=== PATIENT | female | born 1935 | race Caucasian/White ===

== ENCOUNTER 2017-01-17 15:11 | Emergency (ER) | payer OTHER, BC ==
[2017-01-17 15:46] VITALS: BP 169/73; PULSE 65; TEMP 97.8; BMI 26.2
[2017-01-17 17:48] LABS: URINE APPEARANCE CLEAR; URINE BILIRUBIN NEGATIVE (NEGATIVE); URINE BLOOD NEGATIVE (NEGATIVE); URINE COLOR LTYELLOW; URINE GLUCOSE (UA) NEGATIVE (NEGATIVE); URINE KETONE NEGATIVE (NEGATIVE); URINE NITRITE NEGATIVE (NEGATIVE); URINE PROTEIN NEGATIVE (NEGATIVE); URINE UROBILINOGEN NEGATIVE mg/dL (0.2-1.0)
--- NOTE | 2017-01-17 17:52 | PDOC ---
History of Present Illness - General Chief Complaint: Injury Stated Complaint: FALL Time Seen by Provider: 01/17/17 15:57 History Source: Patient Exam Limitations: No Limitations - History of Present Illness Initial Comments: 01/17/17 17:46 CHIEF COMPLAINT: Mechanical fall, left rib pain HISTORY OF PRESENT ILLNESS: Patient is an 81-year-old female, history of retention and high cholesterol currently takes aspirin daily. Patient reports being in shop right and the carpet was mildly raised and the cart got caught on the carpet and she fell forward with able to stop her fall before falling to the floor however hit the left posterior back on some boxes. Now with left posterior lateral back pain. Patient with no bruising, no erythema or edema, denies hitting her head, denies any arm pain, no hip pain. PMH: High blood pressure, high cholesterol, MEDS: See medication list ALLERGIES: None REVIEW OF SYSTEMS: GENERAL/CONSTITUTIONAL: Awake alert and oriented HEAD, EYES, EARS, NOSE AND THROAT: No change in vision. No facial edema, no bruising. NO active bleeding. Nares intact. RESPIRATORY: No cough, wheezing, or hemoptysis. CARDIAC: Denies chest pain, no shortness of breathe. MUSCULOSKELETAL: No spinal point tenderness, there is pain to left lateral mid back . Good ROM to all four extremeties. NO CVA tenderness. No lateral neck pain. GI/: Denies abdominal pain, no nausea or vomiting, no bloody stool, no Hematuria. SKIN : No erythema or bruising noted. No abrasion or lacerations. NEUROLOGIC: No loss of consciousness, no numbness or tingling. PHYSICAL EXAM: GENERAL: Awake and alert and oriented x3. EYES: The pupils are equal, round, and reactive to light, with clear, conjunctiva. Good extraocular movement. No nystagmus NOSE: No nasal trauma . Midface stable MOUTH: Teeth intact. EARS: The ear canals and tympanic membranes are normal without trauma. No drainage. NECK: No Lower cervical C-spine tenderness, no pain with chin to chest. CHEST: The lungs are clear without crackles, or wheezes. No subcutaneous emphysema. No crepitus. HEART: Heart is regular rhythm, with normal S1 and S2, no murmurs. ABDOMEN: The abdomen is soft and nontender with normal bowel sounds. There is no guarding or rebound. MUSCULOSKELETAL: No spinal point tenderness. No bruising or erythema. Pelvis stable. RECTAL: Patient refused. EXTREMITIES: Extremities are normal. No visible traumatic injury. MUSCULOSKELETAL: Pain on palpation to posterior lower rib NEUROLOGICAL:Mental status: The patient is oriented x3. No Generalized headache , Romberg - Cranial nerves: Cranial nerves II through XII are intact Motor: The upper extremities are 5 over 5 in all muscle groups. The lower extremities are 5 over 5 in all muscle groups. Sensation: Sensation is intact to light touch throughout. Cerebellar: Ribbkr-ihwwqs-[id number] is normal in both upper extremities. Heel-knee- nguyễn is normal in both lower extremities. Reflexes: 2+ and symmetric in the upper and lower extremities. Gait: Normal. Heel and toe walking are normal. Tandem gait is normal. SKIN: Without edema, erythema or bruising. No abrasions or lacerations. Past History - Past Medical History Allergies/Adverse Reactions: Allergies Allergy/AdvReac Type Severity Reaction Status Date / Time No Known Allergies Allergy Verified 01/17/17 15:46 Home Medications: Ambulatory Orders Alprazolam 0.5 mg PO ASDIR 01/17/17 Aspirin [Ecotrin] 81 mg PO DAILY 01/17/17 Atorvastatin Ca [Lipitor] 20 mg PO HS 01/17/17 Calcium Citrate 200 mg PO DAILY 01/17/17 Cholecalciferol (Vitamin D3) [Vitamin D3] 2,000 unit PO ASDIR 01/17/17 Citalopram Hydrobromide [Citalopram HBr] 20 mg PO DAILY 01/17/17 Ibandronate Sodium [Boniva] 3 mg IV MONTHLY 01/17/17 Metoprolol Succinate [Toprol Xl] 50 mg PO DAILY 01/17/17 [place]-3 Fatty Acids/Fish Oil [Fish Oil 1,000 mg Softgel] 1 each PO ASDIR Ranitidine [Zantac -] 150 mg PO DAILY 01/17/17 Sennosides [Senna] 8.6 mg PO DAILY 01/17/17 Valsartan 40 mg PO DAILY 01/17/17 Vitamin B Complex [Complex B-100] 1 each PO DAILY 01/17/17 Acetaminophen [Tylenol -] 650 mg PO Q6H PRN #60 tablet 01/18/17 Cardiac Disorders: Yes GI Disorders: Yes HTN: Yes Hypercholesterolemia: Yes - Suicide/Smoking/Psychosocial Hx Smoking Status: No Smoking History: Never smoked Number of Cigarettes Smoked Daily: 0 Hx Alcohol Use: No Drug/Substance Use Hx: No *Physical Exam - Vital Signs Last Vital Signs Temp Pulse Resp BP Pulse Ox 97.8 F 65 20 169/73 97 01/17/17 15:40 01/17/17 15:40 01/17/17 15:40 01/17/17 15:40 01/17/17 15:40 ED Treatment Course - LABORATORY CBC & Chemistry Diagram: 01/17/17 19:50 01/17/17 19:50 - RADIOLOGY Radiology Studies Ordered: Category Date Time Status RIBS-LEFT SIDE [RAD] Stat Radiology 01/17/17 16:42 Ordered Medical Decision Making - Medical Decision Making 01/17/17 18:02 A/P: Patient here for evaluation of left posterior lateral back pain status post fall there is no bruising. Patient with reproducible pain and pain only on palpation, no pain at rest. Denies any chest pain or shortness of breath. Urinalysis sent to rule out blood and patient sent to x-ray. X-ray demonstrates the ninth posterior rib fracture. 1 g of Tylenol ordered. 01/17/17 18:03 Laboratory Results - last 24 hr 01/17/17 16:50 Urine Color Ltyellow Urine Appearance Clear Urine pH 5.0 Urine Protein Negative Urine Glucose (UA) Negative Urine Ketones Negative Urine Blood Negative Urine Nitrite Negative Urine Bilirubin Negative Urine Urobilinogen Negative No blood in urine. Patient with posterior rib fracture #9 , there is a density on x-ray which may be discoid atelectasis versus a pulmonary contusion. Case discussed with Dr. Laguna and Dr. Greene. To be transferred to main emergency department for higher level of care. Plan: CT chest abdomen and pelvis with IV contrast, type and screen, CBC, CMP, PT/ INR, PTT, ABG. Transferred via wheelchair. 01/19/17 11:41 *DC/Admit/Observation/Transfer Diagnosis at time of Disposition: CO2 retention, Intractable pain Pulmonary contusion Qualifiers: Encounter type: initial encounter Laterality: unspecified laterality Qualified Code(s): S27.329A - Contusion of lung, unspecified, initial encounter Multiple rib fractures Qualifiers: Encounter type: initial encounter Fracture type: closed Laterality: unspecified laterality Qualified Code(s): S22.49XA - Multiple fractures of ribs , unspecified side, initial encounter for closed fracture - Discharge Dispostion Disposition: HOME Condition at time of disposition: Stable - Prescriptions Prescriptions: Acetaminophen [Tylenol -] 650 mg PO Q6H PRN #60 tablet PRN Reason: Pain - Referrals Referrals: Han Butts MD [Primary Care Provider] - 01/18/17 8:00 am - Patient Instructions Printed Discharge Instructions: DI for Rib Fracture Additional Instructions: You have 2 ribs which are fractured. it is important to take tylenol and or ibuprofen around the clock for pain control. If you do not then it will be hard to breath and you can develop complications from not taking deep breaths. Continue your home medications follow up with Dr. Bishop in the morning. Call for an appointment right away and see Dr. Bishop as soon as possible. If you can not see your doctor or the pain gets worse or you develop fevers chills chest pain shortness of breath or bleeding go to the nearest emergency room right away. follow up with Dr. Bishop to go over your CT scan as there were some findings that may need to be followed regularly such as the adrenal mass and dilated bile duct seen on CT scan. you may need a fence post driver It was a pleasure meeting you Good [place] Dr. Eusebio Kebede
[2017-01-17] MEDS ORDERED: ACETAMINOPHEN 500 MG TABLET (FP) PO ONE (17:59)
[2017-01-17] MEDS ORDERED: ACETAMINOPHEN 500 MG TABLET (FP) ONE (18:03)
--- NOTE | 2017-01-17 19:14 | PDOC ---
Attending Attestation - Medical Decision Making EXAM#: TYPE/EXAM: RESULT: [id number] CT/ABDOMEN PELVIS CT WITH CONTR [id number] CT/CHEST CT WITH CONTRAST Chest CT (with contrast) Abdomen and pelvis CT (with contrast) Clinical information: status post fall, evaluate for probably contusion Multiplanar imaging of the chest, abdomen and pelvis was performed following the intravenous administration of nonionic contrast. Oral contrast was not administered. No prior CT studies are available at this facility for direct comparison. Mildly displaced acute fractures are seen involving the left eighth rib posteriorly and the left tenth rib laterally. No pneumothorax, infiltrate, pulmonary contusion or pleural fluid is seen. There is mild left basilar and minimal right basilar discoid atelectasis. Mild left atrial dilatation is seen. There is no pericardial effusion. No definite intrathoracic or axillary lymphadenopathy is noted. There is no aortic aneurysm. No CT evidence of aortic injury. There is no obvious endobronchial pathology. No evidence of pneumoperitoneum, free intraperitoneal fluid or bowel obstruction. Cholelithiasis is identified. Note is also made of several gallbladder wall calcifications adjacent to the fundus. The common bile duct is dilated to the level of the ampulla with a maximum diameter of 1.2 cm. No gross intraductal calculus is seen. There is no gross mass lesion. Mild intrahepatic biliary tract dilatation is also noted. There is no definite dilatation of the main pancreatic duct. The liver, spleen, pancreas, right adrenal gland and left kidney demonstrate no discrete pathology. A 1.5 cm left adrenal nodule is noted. There is mild cortical scarring along the lower pole of the right kidney. No abdominal aortic aneurysm is noted. There is no definite abdominal/pelvic lymphadenopathy. A mild L2 superior endplate compression fracture is seen without bony retropulsion. This fracture appears chronic. Marked L4-L5 degenerative disc changes are noted with associated mild degenerative spondylolisthesis at the same level. No CT evidence of acute appendicitis or diverticulitis. IMPRESSION: Acute left eighth and tenth rib fractures are noted. There is mild left basilar and minimal right basilar discoid atelectasis. Mild cardiomegaly. Cholelithiasis. Several gallbladder wall calcifications are seen adjacent to the fundus. Correlate with nonemergent sonography. The common bile duct is dilated to the level interval with a maximum diameter of 1.2 cm. Clinical/ laboratory correlation is suggested as well as with nonemergent MRI/MRCP. A 1.5 cm left adrenal nodule is seen very likely representing an adenoma on a statistical basis. More precise characterization is somewhat difficult on this contrast-enhanced exam. This finding may be further evaluated on MRI. Mild right renal cortical scarring. Mild L2 vertebral body compression fracture which appears chronic. Reported By: Saurav Blas MD 01/17/[address] Butts was called at 23:26 and he requests [facility] admit. <Rima Espinal - Last Filed: 01/17/17 23:25> - Resident Resident Name: True Greene - ED Attending Attestation I have performed the following: I have examined & evaluated the patient, The case was reviewed & discussed with the resident, I agree w/resident's findings & plan, Exceptions are as noted - HPI HPI: 01/17/17 19:08 [facility] Pulmonary Contusion seen on CXR by Radiology and the Provider in [facility] - Physicial Exam PE: 01/17/17 19:12 NOT HYPOXIC or TACHY, VSS, NAD - Medical Decision Making 01/17/17 19:[address] Greene' Assessment and Plan <Abraham Laguna - Last Filed: 01/18/17 01:13> Discharge Disposition <Rima Espinal - Last Filed: 01/17/17 23:25> - Discharge Dispostion Last Admission D/C Date: 06/21/01 Admit: Yes <Abraham Laguna - Last Filed: 01/18/17 01:13> - Diagnosis CO2 retention, Intractable pain Pulmonary contusion Qualifiers: Encounter type: initial encounter Laterality: unspecified laterality Qualified Code(s): S27.329A - Contusion of lung, unspecified, initial encounter Multiple rib fractures Qualifiers: Encounter type: initial encounter Fracture type: closed Laterality: unspecified laterality Qualified Code(s): S22.49XA - Multiple fractures of ribs , unspecified side, initial encounter for closed fracture - Discharge Dispostion Condition at time of disposition: Unchanged/Unknown - Referrals Medical Decision Making - Medical Decision Making 01/17/17 23:28 Case Discussed with PMD, Dr. CARIAS, Observation Admission to [facility] for Multiple Rib Fractures, Pulmonary Contusion and Intractable Pain. Mild retention noted on ABG. Will [facility] [facility] for med -surg observation admission 01/17/17 23:48 Case Discussedc with Resident Physician Eusebio Lemus about the admission who had Dr. Peña call me. Neither resident or attending physician came to evaluate the patient, they are refusing admission without having seen or laying hands on the patient. I have no choice but to involve Dr. Recinos for resolution of this problem. Both the PMD Dr. Carias and Myself recommend observation admission. Will await Dr. Recinos's guidance. 01/18/17 01:12 Ultimately directed to let the obs admission stand by Dr. Peña <Abraham Laguna - Last Filed: 01/18/17 01:13>
[2017-01-17 19:46] LABS: URINE LEUK ESTERASE TRACE (NEGATIVE)
[2017-01-17 20:20] LABS: ARTERIAL BLD GAS O2 SATURATION 95.6 % (90-98.9); ARTERIAL BLOOD GAS BASE EXCESS 3.6 meq/l (-2-2); ARTERIAL BLOOD GAS HCO3 28.3 meq/L (22-26); ARTERIAL BLOOD GAS PO2 76.9 mmHg (68-100); ARTERIAL BLOOD GAS pH 7.41 (7.35-7.45)
[2017-01-17 20:22] LABS: ALLENS TEST POSITIVE; ART PUNCT SITE RIGHT BRACHIAL; LPM/O2% 21%; PT. ON O2? NO; TYPE OF O2 ROOM AIR
[2017-01-17 20:24] LABS: METHEMOGLOBIN 0.6 % (0.4-1.5)
[2017-01-17 20:28] LABS: INR 1.04 (0.82-1.09); PROTHROMBIN TIME (PATIENT) 11.8 SEC (9.98-11.88)
[2017-01-17 20:30] LABS: ACTIVATED PTT 30.7 SECONDS (26.9-34.4)
[2017-01-17 20:33] LABS: BASOPHIL 0.4 % (0-2.0); EOSINOPHIL 1.7 % (0-4.5); MCH 28.6 pg (25.7-33.7); MCHC 33.1 g/dl (32.0-36.0); MEAN CELL VOLUME 86.4 fl (80-96); MEAN PLT VOLUME 8.6 fl (7.5-11.1); NEUTROPHILS 68.3 % (42.8-82.8); PLATELET COUNT 242 K/MM3 (134-434); RDW 13.7 % (11.6-15.6); WHITE BLOOD COUNT 12.8 K/mm3 (4.0-10.0)
[2017-01-17 20:53] LABS: ALBUMIN 3.9 g/dl (3.4-5.0); ANION GAP 7 (8-16); BILIRUBIN,TOTAL 0.6 mg/dL (0.2-1.0); CALCIUM 10.2 mg/dL (8.5-10.1); CO2 28 mmol/L (21-32); GLUCOSE,RANDOM 96 mg/dL (74-106); SGOT/AST 19 U/L (15-37); SGPT/ALT 22 U/L (12-78); TOT PROT 7.6 g/dl (6.4-8.2)
[2017-01-17 20:54] LABS: ALK PHOS 62 U/L (45-117)
[2017-01-17 20:57] LABS: URINE BACTERIA NONE SEEN /hpf (NEGATIVE); URINE RBC 0-2 /hpf (0-3)
--- NOTE | 2017-01-17 21:19 | PDOC ---
History of Present Illness - General Chief Complaint: Injury Stated Complaint: FALL Time Seen by Provider: 01/17/17 15:57 - History of Present Illness Initial Comments: 01/17/17 21:14 The patient is an 81 year old female with a history of HLD, retention on aspirin who presents for evaluation following a fall. The patient reports that she was pushing a shopping cart and tripped on a rug and hit her left sided chest on some boxes with immediate pain. She presented to the ED for evaluation. She denies any head trauma or other injuries besides left sided chest pain. She was initially seen in fast track and was up triaged to the main ED due to finding a 9th displaced rib fracture on the left with signs of a pulmonary contusion on plain film. She currently denies any SOB, abdominal pain , lightheadedness, nausea, vomiting, or changes with urination or bowel movements. Past History - Past Medical History Allergies/Adverse Reactions: Allergies Allergy/AdvReac Type Severity Reaction Status Date / Time No Known Allergies Allergy Verified 01/17/17 15:46 Home Medications: Ambulatory Orders Alprazolam 0.5 mg PO ASDIR 01/17/17 Aspirin [Ecotrin] 81 mg PO DAILY 01/17/17 Atorvastatin Ca [Lipitor] 20 mg PO HS 01/17/17 Calcium Citrate 200 mg PO DAILY 01/17/17 Cholecalciferol (Vitamin D3) [Vitamin D3] 2,000 unit PO ASDIR 01/17/17 Citalopram Hydrobromide [Citalopram HBr] 20 mg PO DAILY 01/17/17 Ibandronate Sodium [Boniva] 3 mg IV MONTHLY 01/17/17 Metoprolol Succinate [Toprol Xl] 50 mg PO DAILY 01/17/17 [place]-3 Fatty Acids/Fish Oil [Fish Oil 1,000 mg Softgel] 1 each PO ASDIR Ranitidine [Zantac -] 150 mg PO DAILY 01/17/17 Sennosides [Senna] 8.6 mg PO DAILY 01/17/17 Valsartan 40 mg PO DAILY 01/17/17 Vitamin B Complex [Complex B-100] 1 each PO DAILY 01/17/17 Acetaminophen [Tylenol -] 650 mg PO Q6H PRN #60 tablet 01/18/17 Cardiac Disorders: Yes GI Disorders: Yes HTN: Yes Hypercholesterolemia: Yes - Suicide/Smoking/Psychosocial Hx Smoking Status: No Smoking History: Never smoked Number of Cigarettes Smoked Daily: 0 Hx Alcohol Use: No Drug/Substance Use Hx: No Review of Systems - Review of Systems Comments:: 01/17/17 21:18 Constitutional: No fevers, chills, fatigue, malaise HEENT: No Rhinorrhea, nasal congestion, visual changes Cardiovascular: Chest pain. No syncope, palpitations, lightheadedness Respiratory: No Cough, SOB, Hemoptysis, Gastrointestinal: No Abdominal pain, Nausea, Vomiting, Constipation, Diarrhea, Melena Genitourinary: No Dysuria, Frequency, Urgency, Hesitancy, Hematuria, Flank pain Musculoskeletal: No Myalgia, arthralgia Skin: No rashes, bruising, pallor Neurologic: No Headache, Dizziness, Numbness, Weakness, or Tingling *Physical Exam - Vital Signs Last Vital Signs Temp Pulse Resp BP Pulse Ox 97.8 F 65 20 169/73 97 01/17/17 15:40 01/17/17 15:40 01/17/17 15:40 01/17/17 15:40 01/17/17 15:40 - Physical Exam Comments: 01/17/17 21:18 General Appearance: Nourished. No Apparent Distress HEENT: EOMI, ANTONIO. No obvious signs of head trauma. No Pharyngeal Erythema, Tonsillar Exudate, Tonsillar Erythema Neck: No Cervical Lymphadenopathy Respiratory/Chest: Tenderness of the left sided chest around the 9th rib. Lungs Clear, Normal Breath Sounds. No Crackles, Rales, Rhonchi, Wheezing Cardiovascular: Regular Rhythm, Regular Rate. No Murmur, Gallops, Rubs Gastrointestinal/Abdominal: Normal Bowel Sounds, Soft. No Guarding, Rebound, Tenderness Musculoskeletal: No CVA Tenderness Extremity: Normal Capillary Refill Integumentary: Normal Color, Dry, Warm Neurologic: gas maker helper II-XII NML intact, Fully Oriented, Alert, Normal Mood/Affect, Normal Response, Motor Strength 5/5. Normal Finger to Nose and Heel to [place] ED Treatment Course - LABORATORY CBC & Chemistry Diagram: 01/17/17 19:50 01/17/17 19:50 - ADDITIONAL ORDERS Additional order review: Laboratory Results 01/17/17 01/17/17 01/17/17 20:15 20:15 19:50 PT with INR INR PTT (Actin FS) Puncture Site Right brachial ABG pH 7.41 ABG pCO2 at Pt Temp 46.0 H ABG pO2 at Pt Temp 76.9 ABG HCO3 28.3 H ABG O2 Sat (Measured) 95.6 ABG O2 Content 15.5 ABG Base Excess 3.6 H Carlos A Test Positive Carboxyhemoglobin 1.5 Methemoglobin 0.6 O2 Delivery Device Room air Oxygen Flow Rate 21% PEEP 0.0 Sodium 139 Potassium 4.3 Chloride 104 Carbon Dioxide 28 Anion Gap 7 L BUN 26 H Creatinine 1.0 Creat Clearance w eGFR 53.35 Random Glucose 96 Calcium 10.2 H Total Bilirubin 0.6 AST 19 ALT 22 Alkaline Phosphatase 62 Total Protein 7.6 Albumin 3.9 Urine Color Urine Appearance Urine pH Ur Specific [place] Urine Protein Urine Glucose (UA) Urine Ketones Urine Blood Urine Nitrite Urine Bilirubin Urine Urobilinogen Ur Leukocyte Esterase Urine RBC Urine WBC Ur Epithelial Cells Urine Bacteria 01/17/17 01/17/17 19:50 16:50 PT with INR 11.80 INR 1.04 PTT (Actin FS) 30.7 Puncture Site ABG pH ABG pCO2 at Pt Temp ABG pO2 at Pt Temp ABG HCO3 ABG O2 Sat (Measured) ABG O2 Content ABG Base Excess Carlos A Test Carboxyhemoglobin Methemoglobin O2 Delivery Device Oxygen Flow Rate PEEP Sodium Potassium Chloride Carbon Dioxide Anion Gap BUN Creatinine Creat Clearance w eGFR Random Glucose Calcium Total Bilirubin AST ALT Alkaline Phosphatase Total Protein Albumin Urine Color Ltyellow Urine Appearance Clear Urine pH 5.0 Ur Specific [place] 1.010 Urine Protein Negative Urine Glucose (UA) Negative Urine Ketones Negative Urine Blood Negative Urine Nitrite Negative Urine Bilirubin Negative Urine Urobilinogen Negative Ur Leukocyte Esterase Trace H Urine RBC 0-2 Urine WBC 1-3 Ur Epithelial Cells None seen Urine Bacteria None seen 01/17/17 19:50 RBC 4.27 MCV 86.4 MCHC 33.1 RDW 13.7 MPV 8.6 Neutrophils % 68.3 Lymphocytes % 22.7 Monocytes % 6.9 Eosinophils % 1.7 Basophils % 0.4 - Medications Given in the ED: ED Medications Discontinued Medications Generic Name Dose Route Start Last Admin Trade Name Freq PRN Reason Stop Dose Admin Acetaminophen 1,000 mg 01/17/17 17:59 01/17/17 18:07 Tylenol - PO 01/17/17 18:00 1,000 mg ONCE ONE Administration Medical Decision Making - Medical Decision Making 01/17/17 21:19 The patient is an 81 year old female with a history of HLD, retention on aspirin who presents for evaluation following a fall. Differential includes but is not limited to: Pneumothorax, pulmonary contusion, fracture, metabolic derangement. Given the patient's signs of pulmonary contusion on chest plain film with hx of trauma, we will obtain a ct chest abdomen and pelvis to evaluate the extent of her injuries further. We will send a cbc, cmp, inr, abg to evaluate her oxygenation status and other etiologies. We will repeat her plain film in several hours after ct to evaluate for any progression of symptoms. The patient is currently stable and in no acute distress on exam. We will continue to monitor and reassess. *DC/Admit/Observation/Transfer Diagnosis at time of Disposition: CO2 retention, Intractable pain Pulmonary contusion Qualifiers: Encounter type: initial encounter Laterality: unspecified laterality Qualified Code(s): S27.329A - Contusion of lung, unspecified, initial encounter Multiple rib fractures Qualifiers: Encounter type: initial encounter Fracture type: closed Laterality: unspecified laterality Qualified Code(s): S22.49XA - Multiple fractures of ribs , unspecified side, initial encounter for closed fracture - Discharge Dispostion Disposition: HOME Condition at time of disposition: Stable - Prescriptions Prescriptions: Acetaminophen [Tylenol -] 650 mg PO Q6H PRN #60 tablet PRN Reason: Pain - Referrals Referrals: Han Butts MD [Primary Care Provider] - 01/18/17 8:00 am - Patient Instructions Printed Discharge Instructions: DI for Rib Fracture Additional Instructions: You have 2 ribs which are fractured. it is important to take tylenol and or ibuprofen around the clock for pain control. If you do not then it will be hard to breath and you can develop complications from not taking deep breaths. Continue your home medications follow up with Dr. Bishop in the morning. Call for an appointment right away and see Dr. Bishop as soon as possible. If you can not see your doctor or the pain gets worse or you develop fevers chills chest pain shortness of breath or bleeding go to the nearest emergency room right away. follow up with Dr. Bishop to go over your CT scan as there were some findings that may need to be followed regularly such as the adrenal mass and dilated bile duct seen on CT scan. you may need a administration dean It was a pleasure meeting you Good [place] Dr. Eusebio Kebede
[2017-01-17] MEDS ORDERED: ACETAMINOPHEN 1000 MG/100 ML VIAL (NON FORMULARY) IVPB ONE (23:44)
[2017-01-17] MEDS ORDERED: ACETAMINOPHEN INJECTION 100 ML IVPB ONE (23:53)
[2017-01-18] MEDS ORDERED: ONDANSETRON 4 MG/2 ML VIAL IVPUSH ONE
[2017-01-18] MEDS ORDERED: morphine CARPU-JECT 2 MG/1 ML DISP.SYRIN IVPUSH ONE
--- NOTE | 2017-01-18 01:39 | HP ---
CHIEF COMPLAINT:s/p fall PCP:Edna HISTORY OF PRESENT ILLNESS: 81F presents to the ED s/p fall. Per patient and she was shopping at [employer] and the rug was curled up and not laying down flat and the patient tripped over the rug. History taken from and . She was pushing the shopping cart while it happened. The patient states she fell on her left side and is complaining of left sided flank pain. She denies hitting her head or LOC. She denies having any visual changes headache lightheadedness or dizziness. She denies nausea vomiting fevers chills chest pain or shortness of breath. ER course was notable for: (1)Tylenol (2)XRays (3)CT scan Recent Travel:Denies PAST MEDICAL HISTORY: HTN, HLD, Anxiety/depression, osteoperosis GERD Social History: Smoking:Denies Alcohol:Denies Drugs: Denies Allergies No Known Allergies Allergy (Verified 01/17/17 15:46) HOME MEDICATIONS: Home Medications Medication Instructions Recorded Alprazolam 0.5 mg PO ASDIR 01/17/17 Aspirin [Ecotrin] 81 mg PO DAILY 01/17/17 Atorvastatin Ca [Lipitor] 20 mg PO HS 01/17/17 Calcium Citrate 200 mg PO DAILY 01/17/17 Cholecalciferol (Vitamin D3) 2,000 unit PO ASDIR 01/17/17 [Vitamin D3] Citalopram Hydrobromide 20 mg PO DAILY 01/17/17 [Citalopram HBr] Ibandronate Sodium [Boniva] 3 mg IV MONTHLY 01/17/17 Metoprolol Succinate [Toprol Xl] 50 mg PO DAILY 01/17/17 [place]-3 Fatty Acids/Fish Oil [Fish 1 each PO ASDIR 01/17/17 Oil 1,000 mg Softgel] Ranitidine [Zantac -] 150 mg PO DAILY 01/17/17 Sennosides [Senna] 8.6 mg PO DAILY 01/17/17 Valsartan 40 mg PO DAILY 01/17/17 Vitamin B Complex [Complex B-100] 1 each PO DAILY 01/17/17 REVIEW OF SYSTEMS CONSTITUTIONAL: Absent: fever, chills, diaphoresis, generalized weakness, malaise, loss of appetite, weight change HEENT: Absent: rhinorrhea, nasal congestion, throat pain, throat swelling, difficulty swallowing, mouth swelling, ear pain, eye pain, visual changes CARDIOVASCULAR: Absent: chest pain, syncope, palpitations, irregular heart rate, lightheadedness , peripheral edema RESPIRATORY: Absent: cough, shortness of breath, dyspnea with exertion, orthopnea, wheezing, stridor, hemoptysis GASTROINTESTINAL: Absent: abdominal pain, abdominal distension, nausea, vomiting, diarrhea, constipation, melena, hematochezia GENITOURINARY: Absent: dysuria, frequency, urgency, hesitancy, hematuria, flank pain, genital pain MUSCULOSKELETAL: Absent: myalgia, arthralgia, joint swelling, back pain, neck pain Present: Left side pain SKIN: Absent: rash, itching, pallor HEMATOLOGIC/IMMUNOLOGIC: Absent: easy bleeding, easy bruising, lymphadenopathy, frequent infections ENDOCRINE: Absent: unexplained weight gain, unexplained weight loss, heat intolerance, cold intolerance NEUROLOGIC: Absent: headache, focal weakness or paresthesias, dizziness, unsteady gait, seizure, mental status changes, bladder or bowel incontinence PSYCHIATRIC: Absent: anxiety, depression, suicidal or homicidal ideation, hallucinations. PHYSICAL EXAMINATION GENERAL: Awake, alert, and fully oriented, in no acute distress. HEAD: Normal with no signs of trauma. EYES: Pupils equal, round and reactive to light, extraocular movements intact, sclera anicteric EARS, NOSE, THROAT: Moist mucous membranes. NECK: Normal range of motion, supple without JVD LUNGS: Breath sounds equal, clear to auscultation bilaterally. No wheezes, and no crackles. Able to take deep breath with minimal pain. tender to palpation over left flank HEART: Regular rate and rhythm, normal S1 and S2 ABDOMEN: Soft, nontender, not distended, normoactive bowel sounds, no guarding, no rebound MUSCULOSKELETAL: Normal range of motion at all joints. No bony deformities. No spinal step offs. No spinal tenderness. No neurologicval deficits. Able to ambulate UPPER EXTREMITIES: no gross deformities or tenderness LOWER EXTREMITIES: no gross deformities or tenderness NEUROLOGICAL: Cranial nerves II-XII intact PSYCHIATRIC: Cooperative. Good eye contact. Appropriate mood and affect. SKIN: Warm, dry, normal turgor, normal capillary refill. CT chest: Chest CT (with contrast) CT chest abdomen and pelvis IMPRESSION: Acute left eighth and tenth rib fractures are noted. There is mild left basilar and minimal right basilar discoid atelectasis. Mild cardiomegaly. Cholelithiasis. Several gallbladder wall calcifications are seen adjacent to the fundus. Correlate with nonemergent sonography. The common bile duct is dilated to the level interval with a maximum diameter of 1.2 cm. Clinical/ laboratory correlation is suggested as well as with nonemergent MRI/MRCP. A 1.5 cm left adrenal nodule is seen very likely representing an adenoma on a statistical basis. More precise characterization is somewhat difficult on this contrast-enhanced exam. This finding may be further evaluated on MRI. Mild right renal cortical scarring. Mild L2 vertebral body compression fracture which appears chronic. ASSESSMENT/PLAN: 81F with HTN HLD presents to the ED s/p mechanical fall found to have 2 rib fractures on the left side. Rib fracture: Pain control incentive spiromtery pain well controlled with tylenol. Never received IV Narcotics. Went to go admit patient. Patient and her were not under the impression they were going to be admitted rather discharged against medical advice. stated he was waiting for ED physician to come back with the paper to sign in order to have "permission to go home". I explained to him that this paper was to leave against medical advice and the patient and expressed understanding. They were spoken to with a cell biology scientist in order to make sure they fully understood everything even though the spoke and understood Indonesian well. It was explained to the that the ED physician's medical judgment is to admit them to the hospital for observation for the patient's own safety. Patient and still refused and stated that nothing was done except taking Tylenol which they could take at home. It was explained to them that we are able to offer stronger medications should she need it and physical therapy as well. We also explained to the patient and her that observing her over a longer period of time could be of benefit to her. They still wanted to go home. They were advised to follow up with Dr. Bishop first thing this morning and they agreed. Risks benefits and alternatives were discussed with the patient and her . Patient seen by attending and determined she was stable for discharge as she was able to ambulate take deep breaths was not in pain and adamantly requesting to go home. NIKKI Sepulveda and Lluvia present during the interaction. Visit type - Emergency Visit Emergency Visit: Yes ED Registration Date: 01/18/17 Care time: The patient presented to the Emergency Department on the above date and was hospitalized for further evaluation of their emergent condition. - New Patient This patient is new to me today: Yes Date on this admission: 01/18/17 - Critical Care Critical Care patient: No
--- NOTE | 2017-01-18 02:23 | DS ---
Physical Exam: SUBJECTIVE: Patient seen and examined OBJECTIVE: PHYSICAL EXAM GENERAL: Awake, alert, and fully oriented, in no acute distress. HEAD: Normal with no signs of trauma. EYES: Pupils equal, round and reactive to light, extraocular movements intact, sclera anicteric EARS, NOSE, THROAT: Moist mucous membranes. NECK: Normal range of motion, supple without JVD LUNGS: Breath sounds equal, clear to auscultation bilaterally. No wheezes, and no crackles. Able to take deep breath with minimal pain. tender to palpation over left flank HEART: Regular rate and rhythm, normal S1 and S2 ABDOMEN: Soft, nontender, not distended, normoactive bowel sounds, no guarding, no rebound MUSCULOSKELETAL: Normal range of motion at all joints. No bony deformities. No spinal step offs. No spinal tenderness. No neurologicval deficits. Able to ambulate UPPER EXTREMITIES: no gross deformities or tenderness LOWER EXTREMITIES: no gross deformities or tenderness NEUROLOGICAL: Cranial nerves II-XII intact PSYCHIATRIC: Cooperative. Good eye contact. Appropriate mood and affect. SKIN: Warm, dry, normal turgor, normal capillary refill. LABS HOSPITAL COURSE: Date of Admission:01/18/17 Date of Discharge: 01/18/17 81F with HTN HLD presents to the ED s/p mechanical fall found to have 2 rib fractures on the left side. Patient was pushing a shopping cart [facility] when she tripped over a rug that was folded on top of itself. patient was to be placed on observation however thae patient did not want to be admitted to the hospital. She wanted to go home. Went to go admit patient. Patient and her were not under the impression they were going to be admitted rather discharged against medical advice. stated they never agreed to admission and he was waiting for ED physician to come back with the paper to sign in order to have "permission to go home". I explained to him that this paper was to leave against medical advice and the patient and expressed understanding. They were spoken to with a acetone recovery worker in order to make sure they fully understood everything even though the spoke and understood Vietnamese well. It was explained to them that the ED physician's medical judgment is to admit them to the hospital for observation for the patient's own safety. Patient and still refused and stated that nothing was done except taking Tylenol which they could take at home. It was explained to them that we are able to offer stronger medications should she need it and physical therapy as well. We also explained to the patient and her that observing her over a longer period of time could be of benefit to her. They still wanted to go home. They were advised to follow up with Dr. Bishop first thing this morning and they agreed. Risks benefits and alternatives were discussed with the patient and her . Patient seen by attending and determined she was stable for discharge as she was able to ambulate take deep breaths was not in pain and adamantly requesting to go home. NIKKI Sepulveda and Lluvia present during the interaction. Instructed to follow up with PMD and GI given Ct scan results, rib fracture, adrenal mass, and dilated bile duct. Minutes to complete discharge: 35 <Eusebio Kebede - Last Filed: 01/18/17 03:36> Physical Exam: SUBJECTIVE: Patient seen and examined with a resident OBJECTIVE: Vital Signs Period Temp Pulse Resp BP Sys/Guy Pulse Ox Last 24 Hr 97.8 F 65 20 169/73 97 PHYSICAL EXAM GENERAL: The patient is awake, alert, and fully oriented, in no acute distress. HEAD: Normal with no signs of trauma. EYES: PERRL, extraocular movements intact, sclera anicteric, conjunctiva clear. ENT: Ears normal, nares patent, oropharynx clear without exudates, moist mucous membranes. NECK: Trachea midline, full range of motion, supple. LUNGS: Breath sounds equal, clear to auscultation bilaterally, no wheezes, no crackles, no accessory muscle use. Left sided chest wall tenderness. LABS Laboratory Results - last 24 hr 01/17/17 01/17/17 01/17/17 16:50 19:50 19:50 WBC 12.8 H RBC 4.27 Hgb 12.2 Hct 37.0 MCV 86.4 MCH 28.6 MCHC 33.1 RDW 13.7 Plt Count 242 MPV 8.6 Neutrophils % 68.3 Lymphocytes % 22.7 Monocytes % 6.9 Eosinophils % 1.7 Basophils % 0.4 PT with INR 11.80 INR 1.04 PTT (Actin FS) 30.7 Puncture Site ABG pH ABG pCO2 at Pt Temp ABG pO2 at Pt Temp ABG HCO3 ABG O2 Sat (Measured) ABG O2 Content ABG Base Excess Carlos A Test Carboxyhemoglobin Methemoglobin O2 Delivery Device Oxygen Flow Rate PEEP Sodium Potassium Chloride Carbon Dioxide Anion Gap BUN Creatinine Creat Clearance w eGFR Random Glucose Calcium Total Bilirubin AST ALT Alkaline Phosphatase Total Protein Albumin Urine Color Ltyellow Urine Appearance Clear Urine pH 5.0 Ur Specific [place] 1.010 Urine Protein Negative Urine Glucose (UA) Negative Urine Ketones Negative Urine Blood Negative Urine Nitrite Negative Urine Bilirubin Negative Urine Urobilinogen Negative Ur Leukocyte Esterase Trace H Urine RBC 0-2 Urine WBC 1-3 Ur Epithelial Cells None seen Urine Bacteria None seen Blood Type Antibody Screen 01/17/17 01/17/17 01/17/17 19:50 19:50 20:15 WBC RBC Hgb Hct MCV MCH MCHC RDW Plt Count MPV Neutrophils % Lymphocytes % Monocytes % Eosinophils % Basophils % PT with INR INR PTT (Actin FS) Puncture Site Right brachial ABG pH 7.41 ABG pCO2 at Pt Temp 46.0 H ABG pO2 at Pt Temp 76.9 ABG HCO3 28.3 H ABG O2 Sat (Measured) 95.6 ABG O2 Content 15.5 ABG Base Excess 3.6 H Carlos A Test Positive Carboxyhemoglobin Methemoglobin O2 Delivery Device Room air Oxygen Flow Rate 21% PEEP 0.0 Sodium 139 Potassium 4.3 Chloride 104 Carbon Dioxide 28 Anion Gap 7 L BUN 26 H Creatinine 1.0 Creat Clearance w eGFR 53.35 Random Glucose 96 Calcium 10.2 H Total Bilirubin 0.6 AST 19 ALT 22 Alkaline Phosphatase 62 Total Protein 7.6 Albumin 3.9 Urine Color Urine Appearance Urine pH Ur Specific [place] Urine Protein Urine Glucose (UA) Urine Ketones Urine Blood Urine Nitrite Urine Bilirubin Urine Urobilinogen Ur Leukocyte Esterase Urine RBC Urine WBC Ur Epithelial Cells Urine Bacteria Blood Type A POSITIVE Antibody Screen Negative 01/17/17 20:15 WBC RBC Hgb Hct MCV MCH MCHC RDW Plt Count MPV Neutrophils % Lymphocytes % Monocytes % Eosinophils % Basophils % PT with INR INR PTT (Actin FS) Puncture Site ABG pH ABG pCO2 at Pt Temp ABG pO2 at Pt Temp ABG HCO3 ABG O2 Sat (Measured) ABG O2 Content ABG Base Excess Carlos A Test Carboxyhemoglobin 1.5 Methemoglobin 0.6 O2 Delivery Device Oxygen Flow Rate PEEP Sodium Potassium Chloride Carbon Dioxide Anion Gap BUN Creatinine Creat Clearance w eGFR Random Glucose Calcium Total Bilirubin AST ALT Alkaline Phosphatase Total Protein Albumin Urine Color Urine Appearance Urine pH Ur Specific [place] Urine Protein Urine Glucose (UA) Urine Ketones Urine Blood Urine Nitrite Urine Bilirubin Urine Urobilinogen Ur Leukocyte Esterase Urine RBC Urine WBC Ur Epithelial Cells Urine Bacteria Blood Type Antibody Screen HOSPITAL COURSE: Date of Admission:01/17/17 Date of Discharge: 01/18/17 Minutes to complete discharge: 45 <Kevin Peña - Last Filed: 01/18/17 06:59> Discharge Summary Reason For Visit: INTRACTABLE PAIN Current Active Problems Multiple rib fractures (Acute) - Home Medications Comprehensive Discharge Medication List: Ambulatory Orders Alprazolam 0.5 mg PO ASDIR 01/17/17 Aspirin [Ecotrin] 81 mg PO DAILY 01/17/17 Atorvastatin Ca [Lipitor] 20 mg PO HS 01/17/17 Calcium Citrate 200 mg PO DAILY 01/17/17 Cholecalciferol (Vitamin D3) [Vitamin D3] 2,000 unit PO ASDIR 01/17/17 Citalopram Hydrobromide [Citalopram HBr] 20 mg PO DAILY 01/17/17 Ibandronate Sodium [Boniva] 3 mg IV MONTHLY 01/17/17 Metoprolol Succinate [Toprol Xl] 50 mg PO DAILY 01/17/17 [place]-3 Fatty Acids/Fish Oil [Fish Oil 1,000 mg Softgel] 1 each PO ASDIR Ranitidine [Zantac -] 150 mg PO DAILY 01/17/17 Sennosides [Senna] 8.6 mg PO DAILY 01/17/17 Valsartan 40 mg PO DAILY 01/17/17 Vitamin B Complex [Complex B-100] 1 each PO DAILY 01/17/17 Acetaminophen [Tylenol -] 650 mg PO Q6H PRN #60 tablet 01/18/17 <Eusbeio Kebede - Last Filed: 01/18/17 03:36> Current Active Problems CO2 retention (Acute) Intractable pain (Acute) Multiple rib fractures (Acute) Pulmonary contusion (Acute) - Home Medications Comprehensive Discharge Medication List: Ambulatory Orders Alprazolam 0.5 mg PO ASDIR 01/17/17 Aspirin [Ecotrin] 81 mg PO DAILY 01/17/17 Atorvastatin Ca [Lipitor] 20 mg PO HS 01/17/17 Calcium Citrate 200 mg PO DAILY 01/17/17 Cholecalciferol (Vitamin D3) [Vitamin D3] 2,000 unit PO ASDIR 01/17/17 Citalopram Hydrobromide [Citalopram HBr] 20 mg PO DAILY 01/17/17 Ibandronate Sodium [Boniva] 3 mg IV MONTHLY 01/17/17 Metoprolol Succinate [Toprol Xl] 50 mg PO DAILY 01/17/17 [place]-3 Fatty Acids/Fish Oil [Fish Oil 1,000 mg Softgel] 1 each PO ASDIR Ranitidine [Zantac -] 150 mg PO DAILY 01/17/17 Sennosides [Senna] 8.6 mg PO DAILY 01/17/17 Valsartan 40 mg PO DAILY 01/17/17 Vitamin B Complex [Complex B-100] 1 each PO DAILY 01/17/17 Acetaminophen [Tylenol -] 650 mg PO Q6H PRN #60 tablet 01/18/17 <Kevin Peña - Last Filed: 01/18/17 06:59> Condition: Stable - Instructions Diet, Activity, Other Instructions: You have 2 ribs which are fractured. it is important to take tylenol and or ibuprofen around the clock for pain control. If you do not then it will be hard to breath and you can develop complications from not taking deep breaths. Continue your home medications follow up with Dr. Bishop in the morning. Call for an appointment right away and see Dr. Bishop as soon as possible. If you can not see your doctor or the pain gets worse or you develop fevers chills chest pain shortness of breath or bleeding go to the nearest emergency room right away. follow up with Dr. Bishop to go over your CT scan as there were some findings that may need to be followed regularly such as the adrenal mass and dilated bile duct seen on CT scan. you may need a truck terminal manager It was a pleasure meeting you Good Lillie Dr. Eusebio Kebede Referrals: Han Butts MD [Primary Care Provider] - 01/18/17 8:00 am Disposition: HOME This patient is new to me today: No Emergency Visit: Yes ED Registration Date: 01/18/17 Care time: The patient presented to the Emergency Department on the above date and was hospitalized for further evaluation of their emergent condition. Critical Care patient: No - Discharge Referral Referred to [facility] No <Eusebio Kebede - Last Filed: 01/18/17 03:36>
--- NOTE | 2017-01-18 07:12 | PN ---
Teaching Attending Note Name of Resident: Eusebio Kebede ATTENDING PHYSICIAN STATEMENT I saw and evaluated the patient. I reviewed the resident's note and discussed the case with the resident. I agree with the resident's findings and plan as documented. SUBJECTIVE: denies pain ambulating able to take a deep breath states that she informed ED that she would like to go home and is awaiting for AMA papers OBJECTIVE: Vital Signs Temperature 97.8 F 01/17/17 15:40 Pulse Rate 65 01/17/17 15:40 Respiratory Rate 20 01/17/17 15:40 Blood Pressure 169/73 01/17/17 15:40 O2 Sat by Pulse Oximetry (%) 97 01/17/17 15:40 left chest wall tenderness ASSESSMENT AND PLAN: ct scan results are discussed explained plan for pain control and incentive spirometry Discussed the need to follow up with PMD to further adress abnormal findings on CT Scan ( dilated CBD and adrenal lesion ) Patient agrees to follow up in 2 days
== END 2017-01-18 02:30 | disposition home or self-care (01) ==
LOC: JER 15:11 → UNDOADMOB 01-18 00:01 → JERBED 01-18 00:01 → JER 01-18 02:30
PROC: 3E033NZ Introduction of Analgesics, Hypnotics, Sedatives into Peripheral Vein, Percutaneous Approach (ICD-10-PCS; principal; 2017-01-17)
DX: S27.329A Contusion of lung, unspecified, initial encounter (principal); S22.42XA Multiple fractures of ribs, left side, initial encounter for closed fracture; W18.31XA Fall on same level due to stepping on an object, initial encounter; Y93.89 Activity, other specified; Y92.512 Supermarket, store or market as the place of occurrence of the external cause; Y99.8 Other external cause status; I10 Essential (primary) hypertension; E78.00 Pure hypercholesterolemia, unspecified
CPT/HCPCS: 36415; 36600; 71101-TC; 71260-TC; 74177-TC; 80053; 81003; 81015; 82375; 82803; 83050; 85025; 85610; 85730; 86850; 86900; 86901; 99283-25

== ENCOUNTER 2022-08-29 17:43 | Inpatient (IN) | payer OTHER, BC ==
[2022-08-29 20:40] LABS: BASO % 0.6 % (0-2.0); EOS % 1.2 % (0-4.5); HEMOGLOBIN 10.4 GM/dL (10.7-15.3); LYMPH % 23.3 % (8-40); MCH 25.5 pg (25.7-33.7); MCHC 32.5 g/dl (32.0-36.0); MEAN CELL VOLUME 78.6 fl (80-96); MEAN PLT VOLUME 8.1 fl (7.5-11.1); MONO % 8.3 % (3.8-10.2); NEUT % 66.6 % (42.8-82.8); PLATELET COUNT 279 10^3/uL (134-434); RBC 4.07 M/mm3 (3.60-5.2); RDW 16.6 % (11.6-15.6); WHITE BLOOD COUNT 9.3 K/mm3 (4.0-10.0)
[2022-08-29 21:00] LABS: INR 1.48 (0.83-1.09); PROTHROMBIN TIME (PATIENT) 17.1 SEC (9.7-13.0)
[2022-08-29 21:02] LABS: ACTIVATED PTT 31.2 SECONDS (25.2-36.5)
[2022-08-29 21:08] LABS: POTASSIUM 4.2 mmol/L (3.5-5.1)
[2022-08-29 21:09] LABS: CALCIUM 9.8 mg/dL (8.5-10.1)
[2022-08-29 21:10] LABS: ALBUMIN 3.4 g/dl (3.4-5.0); BLOOD UREA NITROGEN 27.4 mg/dL (7-18); MAGNESIUM 2.2 mg/dL (1.8-2.4)
[2022-08-29 21:13] LABS: CREATININE 1.5 mg/dL (0.55-1.3)
[2022-08-29 21:15] LABS: TOT PROT 7.7 g/dl (6.4-8.2)
[2022-08-29 21:18] LABS: N-TERMINAL BNP 3403.2 pg/ml (5-450)
[2022-08-29] MEDS ORDERED: ACETAMINOPHEN 1000 MG/100 ML BAG IVPB PRN (23:28)
[2022-08-30 01:16] VITALS: BMI 29.3
[2022-08-30] MEDS ORDERED: FUROSEMIDE 40 MG/4 ML INJECTABLE VIAL IVPUSH ONE (01:32)
[2022-08-30] MEDS ORDERED: MAG HYDROX/AL HYDROX/SIMETH 30 ML UNIT-DOSE CUP PO PRN (02:00)
[2022-08-30 02:12] LABS: POTASSIUM 3.8 mmol/L (3.5-5.1)
[2022-08-30 02:13] LABS: CALCIUM 9.9 mg/dL (8.5-10.1)
[2022-08-30 02:14] LABS: BLOOD UREA NITROGEN 26.1 mg/dL (7-18)
[2022-08-30 02:17] LABS: CREATININE 1.6 mg/dL (0.55-1.3)
[2022-08-30 08:01] LABS: BASO % 0.6 % (0-2.0); EOS % 0.6 % (0-4.5); HEMATOCRIT 32.9 % (32.4-45.2); MCH 26.1 pg (25.7-33.7); MCHC 33.4 g/dl (32.0-36.0); MEAN CELL VOLUME 78.1 fl (80-96); MEAN PLT VOLUME 8.2 fl (7.5-11.1); MONO % 10.5 % (3.8-10.2); NEUT % 65.3 % (42.8-82.8); PLATELET COUNT 261 10^3/uL (134-434); RBC 4.21 M/mm3 (3.60-5.2); RDW 16.2 % (11.6-15.6); WHITE BLOOD COUNT 7.4 K/mm3 (4.0-10.0)
[2022-08-30] MEDS ORDERED: APIXABAN 5 MG TABLET PO SCH (10:00)
[2022-08-30] MEDS ORDERED: HYDROCHLOROTHIAZIDE 25 MG TABLET (FP) PO SCH (10:00)
[2022-08-30] MEDS ORDERED: PATIENT'S OWN MEDICATION (NON-FORMULARY) (Calcium Citrate [Calcium Citrate] 200 MG Tablet) PO SCH (10:00)
[2022-08-30] MEDS ORDERED: FUROSEMIDE 40 MG/4 ML INJECTABLE VIAL IVPUSH SCH (10:00)
[2022-08-30] MEDS: CYANOCOBALAMIN 1,000 MCG TABLET (FP) PO SCH (10:26)
[2022-08-30] MEDS: FOLIC ACID 1 MG TABLET (FP) PO SCH (10:26)
[2022-08-30] MEDS: PANTOPRAZOLE 40 MG TABLET PO SCH (10:26)
[2022-08-30] MEDS: CITALOPRAM HYDROBROMIDE 10 MG TABLET PO SCH (10:27)
[2022-08-30] MEDS: LOSARTAN POTASSIUM 50 MG TABLET PO SCH (10:27)
[2022-08-30] MEDS: ANASTROZOLE 1 MG TABLET PO SCH (10:27)
[2022-08-30] MEDS: ALPRAZolam 0.25 MG TABLET PO PRN (21:24)
[2022-08-30] MEDS: ATORVASTATIN CA 10 MG TABLET (FP) PO SCH (21:25)
[2022-08-30] MEDS ORDERED: ACETAMINOPHEN 325 MG TABLET (FP) PO PRN (23:25)
[2022-08-31] MEDS: CYANOCOBALAMIN 1,000 MCG TABLET (FP) PO SCH (09:34)
[2022-08-31] MEDS: PANTOPRAZOLE 40 MG TABLET PO SCH (09:34)
[2022-08-31] MEDS: FUROSEMIDE 40 MG TABLET (FP) PO SCH (09:34)
[2022-08-31] MEDS: CITALOPRAM HYDROBROMIDE 10 MG TABLET PO SCH (09:34)
[2022-08-31] MEDS: FOLIC ACID 1 MG TABLET (FP) PO SCH (09:34)
[2022-08-31] MEDS: ANASTROZOLE 1 MG TABLET PO SCH (09:35)
[2022-08-31] MEDS: LOSARTAN POTASSIUM 50 MG TABLET PO SCH (12:44)
[2022-08-31] MEDS: APIXABAN 2.5 MG TABLET PO SCH ×2 (15:17→22:12)
[2022-08-31] MEDS: ALPRAZolam 0.25 MG TABLET PO PRN (22:12)
[2022-08-31] MEDS: ATORVASTATIN CA 10 MG TABLET (FP) PO SCH (22:12)
[2022-09-01 09:17] VITALS: BP 112/55; PULSE 80; RESP 18; TEMP 98
[2022-09-01] MEDS: ANASTROZOLE 1 MG TABLET PO SCH (09:27)
[2022-09-01] MEDS: CITALOPRAM HYDROBROMIDE 10 MG TABLET PO SCH (09:27)
[2022-09-01] MEDS: CYANOCOBALAMIN 1,000 MCG TABLET (FP) PO SCH (09:28)
[2022-09-01] MEDS: LOSARTAN POTASSIUM 50 MG TABLET PO SCH (09:28)
[2022-09-01] MEDS: PANTOPRAZOLE 40 MG TABLET PO SCH (09:28)
[2022-09-01] MEDS: APIXABAN 2.5 MG TABLET PO SCH (09:28)
[2022-09-01] MEDS: FUROSEMIDE 40 MG TABLET (FP) PO SCH (09:28)
[2022-09-01] MEDS: FOLIC ACID 1 MG TABLET (FP) PO SCH (09:28)
== END 2022-09-01 15:02 | disposition home or self-care (01) | DRG 314 ==
LOC: JER 17:43 → JERBED 19:08 → J4W 08-30 00:42
PROVIDERS: ADMIT Internal Medicine; ATTEND Internal Medicine
DX: I31.39 Other pericardial effusion (noninflammatory) (principal); I50.33 Acute on chronic diastolic (congestive) heart failure; N17.9 Acute kidney failure, unspecified; I11.0 Hypertensive heart disease with heart failure; I27.20 Pulmonary hypertension, unspecified; E78.5 Hyperlipidemia, unspecified; I48.91 Unspecified atrial fibrillation; K21.9 Gastro-esophageal reflux disease without esophagitis; N26.1 Atrophy of kidney (terminal); F41.8 Other specified anxiety disorders; M81.0 Age-related osteoporosis without current pathological fracture; R93.1 Abnormal findings on diagnostic imaging of heart and coronary circulation; G47.33 Obstructive sleep apnea (adult) (pediatric); E66.9 Obesity, unspecified; Z68.26 Body mass index [BMI] 26.0-26.9, adult; Z85.3 Personal history of malignant neoplasm of breast
CPT/HCPCS: 36415; 71045-TC-FY; 71250-TC; 76775-TC; 80048; 80053; 83735; 83880; 84100; 84439; 84443; 84484; 85025; 85379; 85610; 85730; 93005; 93010; 93306-TC; 93970-TC; 99285-25; C9803-CS; U0003; U0005

== ENCOUNTER 2023-06-25 18:42 | Inpatient (IN) | payer OTHER, BC ==
[2023-06-25 21:16] LABS: BASO % 0.5 % (0-2.0); EOS % 1.7 % (0-4.5); HEMATOCRIT 24.8 % (32.4-45.2); HEMOGLOBIN 7.9 GM/dL (10.7-15.3); LYMPH % 23.3 % (8-40); MCH 23.4 pg (25.7-33.7); MCHC 31.7 g/dl (32.0-36.0); MEAN CELL VOLUME 73.8 fl (80-96); MEAN PLT VOLUME 7.7 fl (7.5-11.1); MONO % 11.3 % (3.8-10.2); NEUT % 63.2 % (42.8-82.8); PLATELET COUNT 383 10^3/uL (134-434); RBC 3.36 M/mm3 (3.60-5.2); WHITE BLOOD COUNT 8.6 K/mm3 (4.0-10.0)
[2023-06-25 21:21] LABS: EPI CELLS 4 /uL (0-25.1); HYALINE CASTS 0 /uL (0-3.1); PH,URINE 6.5 (5.0-8.0); URINE APPEARANCE CLEAR; URINE BACTERIA 10 /uL (0-1359); URINE BILIRUBIN NEGATIVE (NEGATIVE); URINE COLOR YELLOW; URINE GLUCOSE (UA) NEGATIVE (NEGATIVE); URINE KETONE NEGATIVE (NEGATIVE); URINE LEUK ESTERASE TRACE (NEGATIVE); URINE NITRITE NEGATIVE (NEGATIVE); URINE PROTEIN NEGATIVE (NEGATIVE); URINE RBC 3 /uL (0-23.9); URINE UROBILINOGEN 0.2 mg/dL (0.2-1.0); URINE WBC 13 /uL (0-25.8)
[2023-06-25 21:23] LABS: INR 1.33 (0.83-1.09); PROTHROMBIN TIME (PATIENT) 15.4 SEC (9.7-13.0)
[2023-06-25 21:26] LABS: ACTIVATED PTT 18.3 SECONDS (25.2-36.5)
[2023-06-25 21:43] LABS: POTASSIUM 4.7 mmol/L (3.5-5.1)
[2023-06-25 21:45] LABS: MAGNESIUM 2.2 mg/dL (1.8-2.4)
[2023-06-25 21:46] LABS: CALCIUM 9.6 mg/dL (8.5-10.1)
[2023-06-25 21:47] LABS: ALBUMIN 2.9 g/dl (3.4-5.0); BLOOD UREA NITROGEN 36.8 mg/dL (7-18)
[2023-06-25 21:49] LABS: CREATININE 1.5 mg/dL (0.55-1.3)
[2023-06-25 21:52] LABS: BILIRUBIN,TOTAL 0.5 mg/dL (0.2-1); TOT PROT 7.5 g/dl (6.4-8.2)
[2023-06-25 22:56] LABS: POTASSIUM 4.3 mmol/L (3.5-5.1)
[2023-06-25 22:58] LABS: BLOOD UREA NITROGEN 35.9 mg/dL (7-18)
[2023-06-25 23:01] LABS: CREATININE 1.5 mg/dL (0.55-1.3)
[2023-06-26 06:30] LABS: BASO % 0.9 % (0-2.0); EOS % 1.1 % (0-4.5); HEMATOCRIT 28.1 % (32.4-45.2); HEMOGLOBIN 9.1 GM/dL (10.7-15.3); LYMPH % 28.1 % (8-40); MCH 24.5 pg (25.7-33.7); MCHC 32.3 g/dl (32.0-36.0); MEAN CELL VOLUME 75.9 fl (80-96); MEAN PLT VOLUME 7.5 fl (7.5-11.1); MONO % 10.9 % (3.8-10.2); PLATELET COUNT 338 10^3/uL (134-434); RDW 18.2 % (11.6-15.6); WHITE BLOOD COUNT 10.1 K/mm3 (4.0-10.0)
[2023-06-26] MEDS ORDERED: PANTOPRAZOLE 40 MG TABLET PO ONE (11:43)
[2023-06-26] MEDS ORDERED: CITALOPRAM HYDROBROMIDE 10 MG TABLET ONE (11:44)
[2023-06-26] MEDS ORDERED: LOSARTAN POTASSIUM 50 MG TABLET ONE ×2 (11:50→12:02)
[2023-06-26] MEDS: CITALOPRAM HYDROBROMIDE 10 MG TABLET PO SCH (11:56)
[2023-06-26] MEDS: PANTOPRAZOLE 40 MG TABLET PO SCH (11:57)
[2023-06-26] MEDS: LOSARTAN POTASSIUM 50 MG TABLET PO SCH (12:04)
[2023-06-26] MEDS ORDERED: IOHEXOL (OMNIPAQUE PO) 12 MG/ML - 500 ML BOTTLE PO ONE ×2 (12:28→13:24)
[2023-06-26] MEDS: ANASTROZOLE 1 MG TABLET PO SCH (13:29)
[2023-06-26] MEDS: ALPRAZolam 0.25 MG TABLET PO PRN (21:05)
[2023-06-26] MEDS: APIXABAN 2.5 MG TABLET PO SCH (21:05)
[2023-06-26] MEDS: POLYETHYLENE GLYCOL (HEALTHYLAX) 3350 17 GM PACKET PO SCH (21:05)
[2023-06-27 07:06] LABS: BASO % 0.5 % (0-2.0); EOS % 1.2 % (0-4.5); HEMATOCRIT 26.2 % (32.4-45.2); HEMOGLOBIN 8.4 GM/dL (10.7-15.3); LYMPH % 26.9 % (8-40); MCH 24.3 pg (25.7-33.7); MCHC 32.1 g/dl (32.0-36.0); MEAN CELL VOLUME 75.7 fl (80-96); MEAN PLT VOLUME 7.3 fl (7.5-11.1); MONO % 12.5 % (3.8-10.2); NEUT % 58.9 % (42.8-82.8); PLATELET COUNT 321 10^3/uL (134-434); RBC 3.45 M/mm3 (3.60-5.2); RDW 17.9 % (11.6-15.6)
[2023-06-27 07:31] LABS: POTASSIUM 4.4 mmol/L (3.5-5.1)
[2023-06-27 07:40] LABS: INR 1.38 (0.83-1.09); PROTHROMBIN TIME (PATIENT) 15.9 SEC (9.7-13.0)
[2023-06-27 07:55] LABS: BLOOD UREA NITROGEN 30.6 mg/dL (7-18); CALCIUM 9.8 mg/dL (8.5-10.1)
[2023-06-27 07:56] LABS: ALBUMIN 2.7 g/dl (3.4-5.0)
[2023-06-27 07:57] LABS: TOT PROT 6.8 g/dl (6.4-8.2)
[2023-06-27 07:58] LABS: CREATININE 1.3 mg/dL (0.55-1.3)
[2023-06-27 08:00] LABS: BILIRUBIN,TOTAL 0.8 mg/dL (0.2-1)
[2023-06-27] MEDS: FOLIC ACID 1 MG TABLET (FP) PO SCH (09:34)
[2023-06-27 15:11] VITALS: BMI 26.5
[2023-06-28 15:12] LABS: N-TERMINAL BNP 5727.9 pg/ml (5-450)
[2023-06-29 06:45] LABS: BASO % 0.6 % (0-2.0); EOS % 1.6 % (0-4.5); HEMOGLOBIN 8.5 GM/dL (10.7-15.3); LYMPH % 33.5 % (8-40); MCH 24.1 pg (25.7-33.7); MCHC 31.5 g/dl (32.0-36.0); MEAN CELL VOLUME 76.5 fl (80-96); MEAN PLT VOLUME 7.5 fl (7.5-11.1); MONO % 10.3 % (3.8-10.2); PLATELET COUNT 324 10^3/uL (134-434); RBC 3.52 M/mm3 (3.60-5.2); RDW 18.6 % (11.6-15.6); WHITE BLOOD COUNT 8.8 K/mm3 (4.0-10.0)
[2023-06-29 06:47] LABS: INR 1.16 (0.83-1.09); PROTHROMBIN TIME (PATIENT) 13.4 SEC (9.7-13.0)
[2023-06-29 07:08] LABS: POTASSIUM 5.1 mmol/L (3.5-5.1)
[2023-06-29 07:13] LABS: CALCIUM 9.4 mg/dL (8.5-10.1)
[2023-06-29 07:14] LABS: ALBUMIN 2.7 g/dl (3.4-5.0); BLOOD UREA NITROGEN 30.8 mg/dL (7-18)
[2023-06-29 07:17] LABS: CREATININE 1.3 mg/dL (0.55-1.3)
[2023-06-29 07:18] LABS: TOT PROT 7.2 g/dl (6.4-8.2)
[2023-06-29 07:29] LABS: BILIRUBIN,TOTAL 0.6 mg/dL (0.2-1)
[2023-06-29] MEDS ORDERED: LIDOCAINE VISCOUS 2% ORAL/TOP 15 ML UNIT-DOSE CUP ONE (08:41)
[2023-06-29] MEDS ORDERED: MIDAZOLAM HCL 2 MG/2 ML SINGLE DOSE VIAL ONE (08:42)
[2023-06-29] MEDS ORDERED: TETRACAINE/BENZOCAINE/BUTAMBEN 20 GM SPR TP ONE (08:45)
[2023-06-29] MEDS: LIDOCAINE VISCOUS 2% ORAL/TOP 15 ML UNIT-DOSE CUP PO ONE (08:45)
[2023-06-29] MEDS: TETRACAINE/BENZOCAINE/BUTAMBEN 20 GM SPR TP ONE (08:47)
[2023-06-29] MEDS: APIXABAN 2.5 MG TABLET PO SCH (21:41)
[2023-06-30 06:50] LABS: HEMATOCRIT 28.1 % (32.4-45.2); HEMOGLOBIN 8.7 GM/dL (10.7-15.3); MCH 24.1 pg (25.7-33.7); MEAN CELL VOLUME 77.7 fl (80-96); MEAN PLT VOLUME 7.4 fl (7.5-11.1); PLATELET COUNT 310 10^3/uL (134-434); RBC 3.62 M/mm3 (3.60-5.2); WHITE BLOOD COUNT 8.2 K/mm3 (4.0-10.0)
[2023-07-01] MEDS: ACETAMINOPHEN 1000 MG/100 ML BAG IVPB ONE (00:25)
[2023-07-01] MEDS: MELATONIN 5 MG TABLETS PO ONE (05:55)
[2023-07-01 08:30] LABS: BASO % 0.3 % (0-2.0); EOS % 0.3 % (0-4.5); HEMATOCRIT 26.3 % (32.4-45.2); HEMOGLOBIN 8.5 GM/dL (10.7-15.3); LYMPH % 21.3 % (8-40); MCH 24.7 pg (25.7-33.7); MCHC 32.4 g/dl (32.0-36.0); MEAN CELL VOLUME 76.3 fl (80-96); MEAN PLT VOLUME 7.3 fl (7.5-11.1); MONO % 8.8 % (3.8-10.2); NEUT % 69.3 % (42.8-82.8); PLATELET COUNT 275 10^3/uL (134-434); RBC 3.44 M/mm3 (3.60-5.2); RDW 19.5 % (11.6-15.6); WHITE BLOOD COUNT 7.7 K/mm3 (4.0-10.0)
[2023-07-01 09:12] LABS: ALBUMIN 2.7 g/dl (3.4-5.0); CALCIUM 9.5 mg/dL (8.5-10.1)
[2023-07-01 09:13] LABS: BLOOD UREA NITROGEN 29.8 mg/dL (7-18)
[2023-07-01 09:15] LABS: CREATININE 1.1 mg/dL (0.55-1.3)
[2023-07-01 09:17] LABS: BILIRUBIN,TOTAL 0.9 mg/dL (0.2-1); TOT PROT 7.2 g/dl (6.4-8.2)
[2023-07-01] MEDS: AMINO ACIDS/PROTEIN HYDROLYS 30 ML LIQUID.PKT PO SCH (13:51)
[2023-07-02 07:55] LABS: POTASSIUM 4.6 mmol/L (3.5-5.1)
[2023-07-02 08:01] LABS: ALBUMIN 2.7 g/dl (3.4-5.0); BLOOD UREA NITROGEN 32.8 mg/dL (7-18); CALCIUM 9.1 mg/dL (8.5-10.1)
[2023-07-02 08:04] LABS: CREATININE 1.5 mg/dL (0.55-1.3)
[2023-07-02 08:07] LABS: BILIRUBIN,TOTAL 0.8 mg/dL (0.2-1); TOT PROT 6.8 g/dl (6.4-8.2)
[2023-07-02 12:38] LABS: BASO % 0.6 % (0-2.0); EOS % 1.7 % (0-4.5); HEMATOCRIT 24.9 % (32.4-45.2); HEMOGLOBIN 7.9 GM/dL (10.7-15.3); LYMPH % 19.7 % (8-40); MCH 24.4 pg (25.7-33.7); MCHC 31.8 g/dl (32.0-36.0); MEAN CELL VOLUME 76.6 fl (80-96); MEAN PLT VOLUME 7.5 fl (7.5-11.1); MONO % 10.7 % (3.8-10.2); NEUT % 67.3 % (42.8-82.8); PLATELET COUNT 281 10^3/uL (134-434); RBC 3.24 M/mm3 (3.60-5.2); RDW 20.4 % (11.6-15.6); WHITE BLOOD COUNT 7.5 K/mm3 (4.0-10.0)
[2023-07-02 16:30] LABS: POTASSIUM 4.9 mmol/L (3.5-5.1)
[2023-07-02 16:32] LABS: ALBUMIN 2.9 g/dl (3.4-5.0); BLOOD UREA NITROGEN 34.3 mg/dL (7-18); CALCIUM 9.4 mg/dL (8.5-10.1)
[2023-07-02 16:35] LABS: CREATININE 1.4 mg/dL (0.55-1.3)
[2023-07-02 16:36] LABS: BILIRUBIN,TOTAL 0.6 mg/dL (0.2-1); TOT PROT 7.4 g/dl (6.4-8.2)
[2023-07-02] MEDS: IRON SUCROSE INJECTION 200 MG in SODIUM CHLORIDE 100 ML IVPB SCH (18:58)
[2023-07-03 08:39] LABS: BASO % 0.8 % (0-2.0); HEMATOCRIT 25.5 % (32.4-45.2); HEMOGLOBIN 8.1 GM/dL (10.7-15.3); LYMPH % 23.7 % (8-40); MCH 24.5 pg (25.7-33.7); MCHC 31.7 g/dl (32.0-36.0); MEAN CELL VOLUME 77.1 fl (80-96); MEAN PLT VOLUME 7.8 fl (7.5-11.1); MONO % 12.5 % (3.8-10.2); PLATELET COUNT 277 10^3/uL (134-434); RBC 3.31 M/mm3 (3.60-5.2); RDW 20.2 % (11.6-15.6)
[2023-07-03] MEDS ORDERED: SODIUM CHLORIDE NASAL SPRAY 44 ML BOTTLE NS PRN (11:24)
[2023-07-03] MEDS: BISACODYL 5 MG TABLET.DR (FP) PO ONE (16:55)
[2023-07-03] MEDS: PEG 3350/NA SULF BICARB CL/KCL 4000 ML SOLN.RECON PO ONE (17:32)
[2023-07-04 06:54] LABS: INR 1.22 (0.83-1.09); PROTHROMBIN TIME (PATIENT) 14.1 SEC (9.7-13.0)
[2023-07-04 06:56] LABS: BASO % 0.9 % (0-2.0); EOS % 2.3 % (0-4.5); HEMATOCRIT 26.2 % (32.4-45.2); HEMOGLOBIN 8.3 GM/dL (10.7-15.3); LYMPH % 23.1 % (8-40); MCH 24.4 pg (25.7-33.7); MCHC 31.8 g/dl (32.0-36.0); MEAN CELL VOLUME 76.6 fl (80-96); MEAN PLT VOLUME 7.6 fl (7.5-11.1); MONO % 11.4 % (3.8-10.2); NEUT % 62.3 % (42.8-82.8); PLATELET COUNT 294 10^3/uL (134-434); RBC 3.42 M/mm3 (3.60-5.2); RDW 20.8 % (11.6-15.6); WHITE BLOOD COUNT 6.6 K/mm3 (4.0-10.0)
[2023-07-04 07:13] LABS: POTASSIUM 4.3 mmol/L (3.5-5.1)
[2023-07-04 07:19] LABS: ALBUMIN 2.8 g/dl (3.4-5.0); BLOOD UREA NITROGEN 21.6 mg/dL (7-18); CALCIUM 9.7 mg/dL (8.5-10.1)
[2023-07-04 07:22] LABS: CREATININE 1.1 mg/dL (0.55-1.3)
[2023-07-04 07:25] LABS: BILIRUBIN,TOTAL 0.7 mg/dL (0.2-1); TOT PROT 6.9 g/dl (6.4-8.2)
[2023-07-04 09:15] LABS: ANISOCYTOSIS 2+; MACROCYTOSIS 0
[2023-07-04] MEDS ORDERED: KETAMINE HCL 200 MG/20 ML VIAL ONE (10:25)
[2023-07-04] MEDS ORDERED: MIDAZOLAM HCL 2 MG/2 ML SINGLE DOSE VIAL ONE (10:25)
[2023-07-04] MEDS ORDERED: FENTANYL CITRATE/PF 50 MCG/ML VIAL ONE (10:25)
[2023-07-04 12:21] VITALS: RESP 18
[2023-07-04] MEDS: ALPRAZolam 0.25 MG TABLET PO PRN (21:54)
[2023-07-05 08:44] LABS: HEMATOCRIT 25.9 % (32.4-45.2); HEMOGLOBIN 8.1 GM/dL (10.7-15.3); MCH 24.3 pg (25.7-33.7); MCHC 31.3 g/dl (32.0-36.0); MEAN CELL VOLUME 77.8 fl (80-96); MEAN PLT VOLUME 7.6 fl (7.5-11.1); PLATELET COUNT 293 10^3/uL (134-434); RBC 3.32 M/mm3 (3.60-5.2); RDW 20.6 % (11.6-15.6); WHITE BLOOD COUNT 7.6 K/mm3 (4.0-10.0)
[2023-07-05 14:50] VITALS: BP 145/85; PULSE 110; TEMP 97.9
== END 2023-07-05 16:57 | disposition home or self-care (01) | DRG 811 ==
LOC: JER 18:42 → JERBED 19:30 → J4W 06-26 18:38 → OBSVTOIN 06-28 09:43
PROVIDERS: ADMIT Internal Medicine; ATTEND Internal Medicine
PROC: 30233N1 Transfusion of Nonautologous Red Blood Cells into Peripheral Vein, Percutaneous Approach (ICD-10-PCS; 2023-06-25)
PROC: 0DJ08ZZ Inspection of Upper Intestinal Tract, Via Natural or Artificial Opening Endoscopic (ICD-10-PCS; principal; 2023-06-29 08:30)
PROC: 0DBK8ZZ Excision of Ascending Colon, Via Natural or Artificial Opening Endoscopic (ICD-10-PCS; 2023-07-04)
DX: D50.9 Iron deficiency anemia, unspecified (principal); E43 Unspecified severe protein-calorie malnutrition; I13.0 Hypertensive heart and chronic kidney disease with heart failure and stage 1 through stage 4 chronic kidney disease, or unspecified chronic kidney disease; I50.32 Chronic diastolic (congestive) heart failure; N17.9 Acute kidney failure, unspecified; J44.9 Chronic obstructive pulmonary disease, unspecified; N18.9 Chronic kidney disease, unspecified; I48.91 Unspecified atrial fibrillation; K59.00 Constipation, unspecified; D12.2 Benign neoplasm of ascending colon; K57.90 Diverticulosis of intestine, part unspecified, without perforation or abscess without bleeding; D13.1 Benign neoplasm of stomach; F32.A Depression, unspecified; M85.88 Other specified disorders of bone density and structure, other site; K21.9 Gastro-esophageal reflux disease without esophagitis; K80.20 Calculus of gallbladder without cholecystitis without obstruction; F41.8 Other specified anxiety disorders; E78.5 Hyperlipidemia, unspecified; R53.81 Other malaise; I27.20 Pulmonary hypertension, unspecified; K29.60 Other gastritis without bleeding; Z68.26 Body mass index [BMI] 26.0-26.9, adult; Z85.3 Personal history of malignant neoplasm of breast
CPT/HCPCS: 0241U-QW; 36415; 36430; 71045-TC-FY; 74176-TC; 80048; 80053; 80061; 81003; 82272; 82728; 82962; 83036; 83540; 83550; 83735; 83880; 84443; 84484; 85025; 85027; 85610; 85730; 86850; 86900; 86901; 86922; 87086; 88305-TC; 93005; 93010; 93306-TC; 99285-25; G0378; J0131; J1756; P9058

== ENCOUNTER 2023-08-31 09:10 | Inpatient (IN) | payer OTHER, BC ==
[2023-08-31] MEDS ORDERED: ALBUTEROL SO4 2.5/IPRATROPIUM 0.5 INH SOL 3 ML VIAL.NEB. NEB ONE ×2 (09:17→09:41)
[2023-08-31] MEDS ORDERED: methylPREDNISolone NA SUCC 125 MG/2 ML VIAL ONE (09:41)
[2023-08-31] MEDS: methylPREDNISolone NA SUCC 125 MG/2 ML VIAL IVPUSH ONE (09:57)
[2023-08-31] MEDS: ALBUTEROL SO4 2.5/IPRATROPIUM 0.5 INH SOL 3 ML VIAL.NEB. NEB SCH (10:00)
[2023-08-31 10:01] LABS: VENOUS BASE EXCESS 3.1 mmol/L (-2-2); VENOUS O2 SATURATION 32.8 % (70-80); VENOUS PCO2 63.2 mmHg (38-52); VENOUS PH 7.306 (7.310-7.410)
[2023-08-31 10:02] LABS: BASO % 0.6 % (0-2.0); EOS % 0.1 % (0-4.5); HEMATOCRIT 32.8 % (32.4-45.2); HEMOGLOBIN 10.6 GM/dL (10.7-15.3); LYMPH % 29.8 % (8-40); MCH 26.7 pg (25.7-33.7); MCHC 32.3 g/dl (32.0-36.0); MEAN CELL VOLUME 82.7 fl (80-96); MEAN PLT VOLUME 7.4 fl (7.5-11.1); NEUT % 60.5 % (42.8-82.8); PLATELET COUNT 233 10^3/uL (134-434); RBC 3.97 M/mm3 (3.60-5.2); RDW 22.1 % (11.6-15.6); WHITE BLOOD COUNT 6.9 K/mm3 (4.0-10.0)
[2023-08-31 10:09] LABS: INR 1.46 (0.83-1.09); PROTHROMBIN TIME (PATIENT) 16.6 SEC (9.7-13.0)
[2023-08-31 10:11] LABS: ACTIVATED PTT 39.4 SECONDS (25.2-36.5)
[2023-08-31 10:22] LABS: POTASSIUM 5.3 mmol/L (3.5-5.1)
[2023-08-31 10:25] LABS: ALBUMIN 3.2 g/dl (3.4-5.0); BLOOD UREA NITROGEN 29.2 mg/dL (7-18); CALCIUM 9.3 mg/dL (8.5-10.1)
[2023-08-31 10:27] LABS: MAGNESIUM 2.2 mg/dL (1.8-2.4)
[2023-08-31 10:28] LABS: CREATININE 1.5 mg/dL (0.55-1.3)
[2023-08-31 10:30] LABS: TOT PROT 8.2 g/dl (6.4-8.2)
[2023-08-31 10:36] LABS: N-TERMINAL BNP 9195.1 pg/ml (5-450)
[2023-08-31 10:46] LABS: ANISOCYTOSIS 2+; MACROCYTOSIS 0
[2023-08-31] MEDS ORDERED: FUROSEMIDE 40 MG/4 ML INJECTABLE VIAL ONE (10:46)
[2023-08-31] MEDS: FUROSEMIDE 40 MG/4 ML INJECTABLE VIAL IVPUSH ONE (11:03)
[2023-08-31] MEDS: methylPREDNISolone NA SUCC 40 MG/1 ML VIAL IVPUSH SCH (19:03)
[2023-08-31] MEDS: POLYETHYLENE GLYCOL (HEALTHYLAX) 3350 17 GM PACKET PO SCH (21:15)
[2023-08-31] MEDS: APIXABAN 2.5 MG TABLET PO SCH (21:15)
[2023-08-31] MEDS: ALPRAZolam 0.25 MG TABLET PO PRN (21:19)
[2023-09-01 06:52] LABS: BASO % 0.2 % (0-2.0); HEMATOCRIT 31.1 % (32.4-45.2); HEMOGLOBIN 10.2 GM/dL (10.7-15.3); LYMPH % 15.4 % (8-40); MCH 26.5 pg (25.7-33.7); MCHC 32.7 g/dl (32.0-36.0); MEAN PLT VOLUME 7.6 fl (7.5-11.1); MONO % 3.8 % (3.8-10.2); NEUT % 80.6 % (42.8-82.8); PLATELET COUNT 230 10^3/uL (134-434); RBC 3.84 M/mm3 (3.60-5.2); RDW 22.6 % (11.6-15.6); WHITE BLOOD COUNT 6.1 K/mm3 (4.0-10.0)
[2023-09-01 07:05] LABS: POTASSIUM 4.1 mmol/L (3.5-5.1)
[2023-09-01 07:07] LABS: CALCIUM 9.3 mg/dL (8.5-10.1)
[2023-09-01 07:08] LABS: BLOOD UREA NITROGEN 36.9 mg/dL (7-18)
[2023-09-01 07:11] LABS: CREATININE 1.3 mg/dL (0.55-1.3)
[2023-09-01 07:12] LABS: BILIRUBIN,TOTAL 0.6 mg/dL (0.2-1); TOT PROT 7.5 g/dl (6.4-8.2)
[2023-09-01] MEDS: FERROUS SO4 325 MG TABLET (FP) PO SCH (09:28)
[2023-09-01] MEDS: PANTOPRAZOLE 40 MG TABLET PO SCH (09:28)
[2023-09-01] MEDS: FOLIC ACID 1 MG TABLET (FP) PO SCH (09:28)
[2023-09-01] MEDS: FUROSEMIDE 40 MG/4 ML INJECTABLE VIAL IVPUSH SCH (09:28)
[2023-09-01] MEDS: ANASTROZOLE 1 MG TABLET PO SCH (09:32)
[2023-09-01] MEDS: CITALOPRAM HYDROBROMIDE 10 MG TABLET PO SCH (09:32)
[2023-09-01] MEDS ORDERED: LOSARTAN POTASSIUM 50 MG TABLET PO SCH (10:00)
[2023-09-01] MEDS: ALBUTEROL SO4 2.5/IPRATROPIUM 0.5 INH SOL 3 ML VIAL.NEB. NEB SCH (13:30)
[2023-09-01] MEDS: methylPREDNISolone NA SUCC 40 MG/1 ML VIAL IVPUSH SCH (18:57)
[2023-09-03 18:34] LABS: EPI CELLS 4 /uL (0-25.1); HYALINE CASTS 0 /uL (0-3.1); PH,URINE 5.5 (5.0-8.0); URINE APPEARANCE CLEAR; URINE BACTERIA 2 /uL (0-1359); URINE BILIRUBIN NEGATIVE (NEGATIVE); URINE COLOR YELLOW; URINE GLUCOSE (UA) NEGATIVE (NEGATIVE); URINE KETONE NEGATIVE (NEGATIVE); URINE LEUK ESTERASE TRACE (NEGATIVE); URINE NITRITE NEGATIVE (NEGATIVE); URINE PROTEIN NEGATIVE (NEGATIVE); URINE RBC 14 /uL (0-23.9); URINE UROBILINOGEN 0.2 mg/dL (0.2-1.0); URINE WBC 11 /uL (0-25.8)
[2023-09-03] MEDS: methylPREDNISolone NA SUCC 40 MG/1 ML VIAL IVPUSH SCH (21:11)
[2023-09-04] MEDS ORDERED: guaiFENesin 200 MG/10 ML 10 ML UNIT-DOSE CUPS PO PRN (10:36)
[2023-09-04] MEDS: VALSARTAN 160 MG TABLET PO SCH (15:40)
[2023-09-04] MEDS: ALPRAZolam 0.25 MG TABLET PO PRN (21:18)
[2023-09-05 07:39] LABS: POTASSIUM 4.2 mmol/L (3.5-5.1)
[2023-09-05 07:41] LABS: ALBUMIN 2.7 g/dl (3.4-5.0); BLOOD UREA NITROGEN 47.5 mg/dL (7-18); CALCIUM 9.2 mg/dL (8.5-10.1)
[2023-09-05 07:44] LABS: CREATININE 1.2 mg/dL (0.55-1.3)
[2023-09-05 07:46] LABS: BILIRUBIN,TOTAL 0.7 mg/dL (0.2-1)
[2023-09-05] MEDS: BUDESONIDE/FORMETEROL FUMARATE 160/4.5 mcg INHALER IH SCH (10:46)
[2023-09-05] MEDS: methylPREDNISolone NA SUCC 40 MG/1 ML VIAL IVPUSH SCH (16:36)
[2023-09-06 07:04] LABS: LYMPH % 7.4 % (8-40); MCH 27.5 pg (25.7-33.7); MCHC 33.4 g/dl (32.0-36.0); MEAN CELL VOLUME 82.3 fl (80-96); MEAN PLT VOLUME 7.8 fl (7.5-11.1); MONO % 7.4 % (3.8-10.2); NEUT % 85.2 % (42.8-82.8); PLATELET COUNT 269 10^3/uL (134-434); RBC 4.01 M/mm3 (3.60-5.2); RDW 21.1 % (11.6-15.6); WHITE BLOOD COUNT 7.2 K/mm3 (4.0-10.0)
[2023-09-06 07:21] LABS: POTASSIUM 4.4 mmol/L (3.5-5.1)
[2023-09-06 07:31] LABS: ALBUMIN 2.5 g/dl (3.4-5.0); BLOOD UREA NITROGEN 41.2 mg/dL (7-18); CALCIUM 9.6 mg/dL (8.5-10.1)
[2023-09-06 07:34] LABS: CREATININE 1.1 mg/dL (0.55-1.3)
[2023-09-06 07:36] LABS: BILIRUBIN,TOTAL 1.1 mg/dL (0.2-1); TOT PROT 6.8 g/dl (6.4-8.2)
[2023-09-06 09:33] LABS: ANISOCYTOSIS 1+; MACROCYTOSIS 0
[2023-09-06 09:48] LABS: PLATELET ESTIMATE ADEQUATE
[2023-09-07 21:05] VITALS: RESP 22
[2023-09-07] MEDS: ALPRAZolam 0.25 MG TABLET PO PRN (22:59)
[2023-09-08 02:20] VITALS: BP 142/72; PULSE 83; TEMP 97.5
[2023-09-08 15:43] VITALS: BMI 26.0
== END 2023-09-08 03:06 | disposition short-term general hospital (02) | DRG 291 ==
LOC: JER 09:10 → JERBED 10:45 → J4W 18:16
PROVIDERS: ADMIT Internal Medicine; ATTEND Internal Medicine
DX: I13.0 Hypertensive heart and chronic kidney disease with heart failure and stage 1 through stage 4 chronic kidney disease, or unspecified chronic kidney disease (principal); I50.33 Acute on chronic diastolic (congestive) heart failure; J96.01 Acute respiratory failure with hypoxia; J44.1 Chronic obstructive pulmonary disease with (acute) exacerbation; I31.39 Other pericardial effusion (noninflammatory); N17.9 Acute kidney failure, unspecified; I48.91 Unspecified atrial fibrillation; I27.20 Pulmonary hypertension, unspecified; E11.22 Type 2 diabetes mellitus with diabetic chronic kidney disease; N18.9 Chronic kidney disease, unspecified; D64.9 Anemia, unspecified; E78.5 Hyperlipidemia, unspecified; K21.9 Gastro-esophageal reflux disease without esophagitis; F41.8 Other specified anxiety disorders; M85.88 Other specified disorders of bone density and structure, other site; M27.63 Post-osseointegration mechanical failure of dental implant; K08.539 Fractured dental restorative material, unspecified; K59.00 Constipation, unspecified; Z85.3 Personal history of malignant neoplasm of breast
CPT/HCPCS: 0241U-QW; 36415; 71045-TC-FY; 80053; 81003; 82803; 82962; 83735; 83880; 84443; 84484; 85025; 85610; 85730; 87070; 87086; 87184; 87205; 87254; 87635; 93005; 93010; 93306-TC; 94640; 94660; 94761; 97116-GP; 97161-GP; 99291

== ENCOUNTER 2023-11-19 11:02 | Inpatient (IN) | payer OTHER, BC ==
[2023-11-19 12:14] LABS: EPI CELLS 3 /uL (0-25.1); HYALINE CASTS 0 /uL (0-3.1); URINE APPEARANCE CLEAR; URINE BACTERIA 12 /uL (0-1359); URINE BILIRUBIN NEGATIVE (NEGATIVE); URINE COLOR YELLOW; URINE GLUCOSE (UA) NEGATIVE (NEGATIVE); URINE KETONE NEGATIVE (NEGATIVE); URINE LEUK ESTERASE 1+ (NEGATIVE); URINE NITRITE NEGATIVE (NEGATIVE); URINE PROTEIN NEGATIVE (NEGATIVE); URINE RBC 9 /uL (0-23.9); URINE UROBILINOGEN 0.2 mg/dL (0.2-1.0); URINE WBC 16 /uL (0-25.8)
[2023-11-19] MEDS ORDERED: ALBUTEROL SO4 2.5/IPRATROPIUM 0.5 INH SOL 3 ML VIAL.NEB. NEB ONE ×3 (12:55→21:23)
[2023-11-19] MEDS: ALBUTEROL SO4 2.5/IPRATROPIUM 0.5 INH SOL 3 ML VIAL.NEB. NEB ONE (13:26)
[2023-11-19] MEDS ORDERED: methylPREDNISolone NA SUCC 125 MG/2 ML VIAL ONE (13:52)
[2023-11-19 13:54] LABS: VENOUS BASE EXCESS 9.7 mmol/L (-2-2); VENOUS O2 SATURATION 45.8 % (70-80); VENOUS PH 7.381 (7.310-7.410)
[2023-11-19 13:56] LABS: BASO % 1.1 % (0-2.0); EOS % 2.1 % (0-4.5); HEMOGLOBIN 11.7 GM/dL (10.7-15.3); LYMPH % 15.4 % (8-40); MCH 26.6 pg (25.7-33.7); MCHC 32.4 g/dl (32.0-36.0); MEAN PLT VOLUME 7.3 fl (7.5-11.1); MONO % 7.4 % (3.8-10.2); PLATELET COUNT 438 10^3/uL (134-434); RBC 4.39 M/mm3 (3.60-5.2); RDW 18.5 % (11.6-15.6); WHITE BLOOD COUNT 10.8 K/mm3 (4.0-10.0)
[2023-11-19] MEDS: methylPREDNISolone NA SUCC 125 MG/2 ML VIAL IVPUSH ONE (13:59)
[2023-11-19 14:15] LABS: POTASSIUM 3.8 mmol/L (3.5-5.1)
[2023-11-19 14:18] LABS: ALBUMIN 2.1 g/dl (3.4-5.0); BLOOD UREA NITROGEN 32.2 mg/dL (7-18)
[2023-11-19 14:21] LABS: CREATININE 1.3 mg/dL (0.55-1.3)
[2023-11-19 14:22] LABS: BILIRUBIN,TOTAL 0.6 mg/dL (0.2-1)
[2023-11-19 14:23] LABS: TOT PROT 6.8 g/dl (6.4-8.2)
[2023-11-19 14:26] LABS: N-TERMINAL BNP 6422.2 pg/ml (5-450)
[2023-11-19] MEDS ORDERED: FUROSEMIDE 40 MG/4 ML INJECTABLE VIAL ONE (15:03)
[2023-11-19] MEDS: FUROSEMIDE 40 MG/4 ML INJECTABLE VIAL IVPUSH ONE (15:10)
[2023-11-19] MEDS: ALBUTEROL SO4 2.5/IPRATROPIUM 0.5 INH SOL 3 ML VIAL.NEB. NEB SCH (16:28)
[2023-11-19] MEDS ORDERED: APIXABAN 2.5 MG TABLET ONE (21:23)
[2023-11-19] MEDS ORDERED: ALPRAZolam 0.25 MG TABLET ONE (21:24)
[2023-11-19] MEDS: APIXABAN 2.5 MG TABLET PO SCH (21:36)
[2023-11-19] MEDS: ALPRAZolam 0.25 MG TABLET PO PRN (21:36)
[2023-11-20 08:49] LABS: BASO % 0.2 % (0-2.0); HEMATOCRIT 32.1 % (32.4-45.2); HEMOGLOBIN 10.6 GM/dL (10.7-15.3); LYMPH % 13.6 % (8-40); MCH 26.5 pg (25.7-33.7); MCHC 32.9 g/dl (32.0-36.0); MEAN CELL VOLUME 80.6 fl (80-96); MEAN PLT VOLUME 7.6 fl (7.5-11.1); MONO % 2.8 % (3.8-10.2); NEUT % 83.4 % (42.8-82.8); PLATELET COUNT 417 10^3/uL (134-434); RBC 3.98 M/mm3 (3.60-5.2); RDW 18.4 % (11.6-15.6); WHITE BLOOD COUNT 6.3 K/mm3 (4.0-10.0)
[2023-11-20 09:16] LABS: POTASSIUM 3.9 mmol/L (3.5-5.1)
[2023-11-20 09:19] LABS: BLOOD UREA NITROGEN 35.2 mg/dL (7-18); CALCIUM 9.3 mg/dL (8.5-10.1)
[2023-11-20 09:23] LABS: CREATININE 1.4 mg/dL (0.55-1.3)
[2023-11-20 09:24] LABS: BILIRUBIN,TOTAL 0.4 mg/dL (0.2-1); TOT PROT 6.5 g/dl (6.4-8.2)
[2023-11-20] MEDS: PANTOPRAZOLE 40 MG TABLET PO SCH (10:05)
[2023-11-20] MEDS: FOLIC ACID 1 MG TABLET (FP) PO SCH (10:05)
[2023-11-20] MEDS: FERROUS SO4 325 MG TABLET (FP) PO SCH (10:05)
[2023-11-20] MEDS: CITALOPRAM HYDROBROMIDE 10 MG TABLET PO SCH (10:05)
[2023-11-20] MEDS: LOSARTAN POTASSIUM 50 MG TABLET PO SCH (10:06)
[2023-11-20] MEDS: FUROSEMIDE 40 MG/4 ML INJECTABLE VIAL IVPUSH SCH (10:06)
[2023-11-20] MEDS: ANASTROZOLE 1 MG TABLET PO SCH (10:06)
[2023-11-20] MEDS: POLYETHYLENE GLYCOL (HEALTHYLAX) 3350 17 GM PACKET PO PRN (10:21)
[2023-11-20] MEDS: ALBUTEROL SO4 2.5/IPRATROPIUM 0.5 INH SOL 3 ML VIAL.NEB. NEB SCH (19:46)
[2023-11-21 08:53] LABS: BLOOD UREA NITROGEN 42.4 mg/dL (7-18); CALCIUM 9.7 mg/dL (8.5-10.1); MAGNESIUM 2.6 mg/dL (1.8-2.4)
[2023-11-21 09:00] LABS: CREATININE 1.5 mg/dL (0.55-1.3)
[2023-11-21] MEDS ORDERED: ALBUTEROL SO4 2.5/IPRATROPIUM 0.5 INH SOL 3 ML VIAL.NEB. NEB ONE (14:56)
[2023-11-21] MEDS: ASCORBIC ACID 250 MG TABLET (FP) PO SCH (17:25)
[2023-11-21] MEDS: ZINC SULFATE 220 MG CAPSULE (FP) PO SCH (17:25)
[2023-11-21] MEDS: MULTIVITAMINS (DAILY MVI) TABLET (FP) PO SCH (17:25)
[2023-11-21] MEDS: ACETAMINOPHEN 325 MG TABLET (FP) PO ONE (21:36)
[2023-11-22 08:15] LABS: POTASSIUM 4.3 mmol/L (3.5-5.1)
[2023-11-22 08:19] LABS: BLOOD UREA NITROGEN 42.1 mg/dL (7-18); CALCIUM 9.7 mg/dL (8.5-10.1)
[2023-11-22 08:22] LABS: CREATININE 1.4 mg/dL (0.55-1.3)
[2023-11-22] MEDS: ACETAMINOPHEN 325 MG TABLET (FP) PO PRN (12:04)
[2023-11-22 12:15] VITALS: BMI 22.6
[2023-11-23 02:14] VITALS: RESP 20
[2023-11-23 08:36] LABS: POTASSIUM 4.2 mmol/L (3.5-5.1)
[2023-11-23 08:40] LABS: BLOOD UREA NITROGEN 41.3 mg/dL (7-18); CALCIUM 9.3 mg/dL (8.5-10.1)
[2023-11-23 08:43] LABS: CREATININE 1.4 mg/dL (0.55-1.3)
[2023-11-23] MEDS: FUROSEMIDE 40 MG TABLET (FP) PO SCH (09:22)
[2023-11-23 18:03] VITALS: BP 136/70; PULSE 92; TEMP 97.3
== END 2023-11-23 18:00 | disposition home or self-care (01) | DRG 291 ==
LOC: JER 11:02 → JERBED 14:42 → J4W 22:02
PROVIDERS: ADMIT Internal Medicine; ATTEND Internal Medicine
DX: I11.0 Hypertensive heart disease with heart failure (principal); I50.33 Acute on chronic diastolic (congestive) heart failure; J96.01 Acute respiratory failure with hypoxia; J81.0 Acute pulmonary edema; J44.0 Chronic obstructive pulmonary disease with (acute) lower respiratory infection; J44.1 Chronic obstructive pulmonary disease with (acute) exacerbation; N17.9 Acute kidney failure, unspecified; E78.5 Hyperlipidemia, unspecified; I48.91 Unspecified atrial fibrillation; J44.9 Chronic obstructive pulmonary disease, unspecified; K21.9 Gastro-esophageal reflux disease without esophagitis; K59.00 Constipation, unspecified; L89.152 Pressure ulcer of sacral region, stage 2; F41.8 Other specified anxiety disorders; M85.80 Other specified disorders of bone density and structure, unspecified site; D50.9 Iron deficiency anemia, unspecified; Z85.3 Personal history of malignant neoplasm of breast; Z99.81 Dependence on supplemental oxygen
CPT/HCPCS: 36415; 71045-TC-FY; 80048; 80053; 81003; 82803; 83735; 83880; 84439; 84443; 84484; 85025; 93005; 93010; 94640; 97116-GP; 97162-GP; 99285-25

== ENCOUNTER 2023-11-30 10:37 | Inpatient (IN) | payer OTHER, BC ==
[2023-11-30] MEDS ORDERED: FUROSEMIDE 40 MG/4 ML INJECTABLE VIAL ONE (10:52)
[2023-11-30] MEDS ORDERED: ALBUTEROL SO4 2.5/IPRATROPIUM 0.5 INH SOL 3 ML VIAL.NEB. NEB ONE (10:52)
[2023-11-30 11:34] LABS: VENOUS BASE EXCESS 0.2 mmol/L (-2-2); VENOUS O2 SATURATION 38.9 % (70-80); VENOUS PCO2 61.2 mmHg (38-52); VENOUS PH 7.281 (7.310-7.410)
[2023-11-30 11:45] LABS: INR 2.18 (0.83-1.09); PROTHROMBIN TIME (PATIENT) 24.1 SEC (9.7-13.0)
[2023-11-30 11:48] LABS: ACTIVATED PTT 45.1 SECONDS (25.2-36.5)
[2023-11-30 11:53] LABS: CHLORIDE 101 mmol/L (98-107); SODIUM 135 mmol/L (136-145)
[2023-11-30 11:55] LABS: BASO % 0.2 % (0-2.0); EOS % 0.2 % (0-4.5); HEMATOCRIT 34.2 % (32.4-45.2); LYMPH % 18.4 % (8-40); MCH 27.3 pg (25.7-33.7); MCHC 32.2 g/dl (32.0-36.0); MEAN CELL VOLUME 84.7 fl (80-96); MEAN PLT VOLUME 7.4 fl (7.5-11.1); MONO % 8.3 % (3.8-10.2); NEUT % 72.9 % (42.8-82.8); PLATELET COUNT 419 10^3/uL (134-434); RBC 4.04 M/mm3 (3.60-5.2); RDW 19.9 % (11.6-15.6); WHITE BLOOD COUNT 7.5 K/mm3 (4.0-10.0)
[2023-11-30 11:57] LABS: ALBUMIN 2.3 g/dl (3.4-5.0); BLOOD UREA NITROGEN 55.1 mg/dL (7-18); CALCIUM 9.5 mg/dL (8.5-10.1); CO2 29 mmol/L (21-32); GLUCOSE,RANDOM 108 mg/dL (74-106); MAGNESIUM 2.5 mg/dL (1.8-2.4)
[2023-11-30 11:59] LABS: SGOT/AST 42 U/L (15-37); SGPT/ALT 22 U/L (13-61)
[2023-11-30 12:00] LABS: ANION GAP 6 mmol/L (4-13); CREATININE 1.7 mg/dL (0.55-1.3); PHOSPHOROUS 4.1 mg/dL (2.5-4.9); POTASSIUM 6.6 mmol/L (3.5-5.1)
[2023-11-30 12:01] LABS: BILIRUBIN,TOTAL 0.7 mg/dL (0.2-1); TOT PROT 7.4 g/dl (6.4-8.2)
[2023-11-30 12:02] LABS: ALK PHOS 95 U/L (45-117)
[2023-11-30 12:05] LABS: N-TERMINAL BNP 9130.3 pg/ml (5-450)
[2023-11-30 12:11] LABS: ARTERIAL BLD GAS O2 SATURATION 99.8 % (95-98); ARTERIAL BLOOD GAS BASE EXCESS 1.2 mmol/L (-2-2); ARTERIAL BLOOD GAS PO2 395.9 mmHg (80-100)
[2023-11-30 12:12] LABS: PH,URINE 5.5 (5.0-8.0); URINE APPEARANCE CLEAR; URINE BILIRUBIN NEGATIVE (NEGATIVE); URINE COLOR YELLOW; URINE GLUCOSE (UA) NEGATIVE (NEGATIVE); URINE KETONE NEGATIVE (NEGATIVE); URINE LEUK ESTERASE NEGATIVE (NEGATIVE); URINE NITRITE NEGATIVE (NEGATIVE); URINE PROTEIN NEGATIVE (NEGATIVE)
[2023-11-30] MEDS: FUROSEMIDE 40 MG/4 ML INJECTABLE VIAL IVPUSH ONE (12:52)
[2023-11-30] MEDS: ALBUTEROL SO4 2.5/IPRATROPIUM 0.5 INH SOL 3 ML VIAL.NEB. NEB SCH (12:52)
[2023-11-30] MEDS ORDERED: ALBUTEROL SO4 2.5/IPRATROPIUM 0.5 INH SOL 3 ML VIAL.NEB. NEB PRN (13:22)
[2023-11-30] MEDS ORDERED: ACETAMINOPHEN 325 MG TABLET (FP) PO PRN (13:25)
[2023-11-30 13:48] LABS: CHLORIDE 99 mmol/L (98-107); SODIUM 134 mmol/L (136-145)
[2023-11-30 13:49] LABS: CALCIUM 9.9 mg/dL (8.5-10.1); POTASSIUM 6.7 mmol/L (3.5-5.1)
[2023-11-30 13:50] LABS: ANION GAP 5 mmol/L (4-13); BLOOD UREA NITROGEN 59.4 mg/dL (7-18); CO2 30 mmol/L (21-32); GLUCOSE,RANDOM 91 mg/dL (74-106)
[2023-11-30 13:53] LABS: CREATININE 1.7 mg/dL (0.55-1.3)
[2023-11-30] MEDS: SODIUM POLYSTYRENE SULFONATE 15 GM/60 ML BOTTLE PO ONE (14:40)
[2023-11-30] MEDS: FUROSEMIDE 40 MG/4 ML INJECTABLE VIAL IVPUSH SCH (16:53)
[2023-11-30] MEDS: SODIUM POLYSTYRENE SULFONATE 15 GM/60 ML BOTTLE RC ONE (18:04)
[2023-11-30] MEDS: APIXABAN 2.5 MG TABLET PO SCH (22:14)
[2023-12-01 07:34] LABS: BASO % 0.2 % (0-2.0); EOS % 0.1 % (0-4.5); HEMATOCRIT 35.6 % (32.4-45.2); HEMOGLOBIN 11.6 GM/dL (10.7-15.3); MCH 27.1 pg (25.7-33.7); MCHC 32.6 g/dl (32.0-36.0); MEAN CELL VOLUME 82.9 fl (80-96); MEAN PLT VOLUME 7.5 fl (7.5-11.1); MONO % 7.5 % (3.8-10.2); NEUT % 76.2 % (42.8-82.8); PLATELET COUNT 462 10^3/uL (134-434); RBC 4.29 M/mm3 (3.60-5.2); RDW 20.1 % (11.6-15.6); WHITE BLOOD COUNT 9.6 K/mm3 (4.0-10.0)
[2023-12-01 07:52] LABS: POTASSIUM 5.6 mmol/L (3.5-5.1)
[2023-12-01 08:00] LABS: CALCIUM 9.9 mg/dL (8.5-10.1)
[2023-12-01 08:01] LABS: ALBUMIN 2.3 g/dl (3.4-5.0); BLOOD UREA NITROGEN 59.9 mg/dL (7-18)
[2023-12-01 08:02] LABS: CREATININE 1.9 mg/dL (0.55-1.3)
[2023-12-01 08:04] LABS: BILIRUBIN,TOTAL 0.8 mg/dL (0.2-1); TOT PROT 6.8 g/dl (6.4-8.2)
[2023-12-01] MEDS: PANTOPRAZOLE 40 MG TABLET PO SCH (09:39)
[2023-12-01] MEDS: ANASTROZOLE 1 MG TABLET PO SCH (09:39)
[2023-12-01 13:09] VITALS: BMI 24.1
[2023-12-02 06:06] VITALS: BP 122/78; PULSE 89; RESP 21; TEMP 98.6
== END 2023-12-02 06:25 | disposition expired | DRG 291 ==
LOC: JER 10:37 → JERBED 11:54 → J8W 14:22
PROVIDERS: ADMIT Internal Medicine; ATTEND Internal Medicine
DX: I13.0 Hypertensive heart and chronic kidney disease with heart failure and stage 1 through stage 4 chronic kidney disease, or unspecified chronic kidney disease (principal); I50.33 Acute on chronic diastolic (congestive) heart failure; J96.21 Acute and chronic respiratory failure with hypoxia; J44.1 Chronic obstructive pulmonary disease with (acute) exacerbation; N17.9 Acute kidney failure, unspecified; E87.20 Acidosis, unspecified; E87.29 Other acidosis; J90 Pleural effusion, not elsewhere classified; E87.5 Hyperkalemia; D46.9 Myelodysplastic syndrome, unspecified; E11.22 Type 2 diabetes mellitus with diabetic chronic kidney disease; N18.9 Chronic kidney disease, unspecified; D64.9 Anemia, unspecified; E78.5 Hyperlipidemia, unspecified; I48.91 Unspecified atrial fibrillation; K21.9 Gastro-esophageal reflux disease without esophagitis
CPT/HCPCS: 0241U-QW; 36415; 36600; 71045-TC-FY; 80048; 80053; 81003; 82803; 82962; 83605; 83735; 83880; 84100; 84484; 85025; 85610; 85730; 86850; 86900; 86901; 87086; 93005; 93010; 94660; 99285-25